=== PATIENT | male | born 1980 | race African-American/Black ===

== ENCOUNTER 2018-02-16 06:16 | Inpatient (IN) | payer SELFPAY ==
[2018-02-16] MEDS ORDERED: ALBUTEROL 2.5 MG/3 ML NEB SOL ONE ×2 (06:28→06:41)
[2018-02-16] MEDS ORDERED: LORazepam 2 MG/ML VIAL ONE (06:28)
[2018-02-16 06:47] LABS: Absolute Lymphocytes (CBC) 3.1 K/uL (0.7-4.9); Absolute Neutrophil 17.3 K/uL (1.8-8.0); Basophils % 0.8 % (0-1.3); Eosinophils % 1.1 % (0-4.4); Hematocrit 44.4 % (39.6-49.0); Lymphocytes % 13.7 % (15.3-44.8); MCH 31.4 pg (27.0-35.0); MCV 91.3 fL (80-100); MPV 6.9 fL (7.6-11.3); Monocytes % 8.6 % (3.3-12.3); RBC Red Blood Cell Count 4.86 M/uL (4.33-5.43)
[2018-02-16 07:04] LABS: Albumin 3.9 g/dL (3.2-5.5); Bilirubin Direct 0.1 mg/dL (0-0.2); Bilirubin Total 0.5 mg/dL (0.3-1.2); Magnesium 1.8 mg/dL (1.8-2.5); Protein, Total 7.3 g/dL (6.0-8.3)
[2018-02-16 07:07] LABS: CKMB Creatine Kinase MB 1.5 ng/ml (0.3-4.0)
[2018-02-16 07:14] LABS: Potassium 2.7 mEq/L (3.6-5.0)
[2018-02-16] MEDS ORDERED: NA CHLORIDE 0.9% 1,000 ML ONE (07:32)
[2018-02-16] MEDS ORDERED: KCL 20 MEQ/100 mL IVPB 40 MEQ/200 ML BAG IV ONE (07:33)
--- NOTE | 2018-02-16 07:36 | EKG ---
Test Date: 2018-02-16 Test Time: 06:14:12 Corporate Meeting Planner: JESÚS MEASUREMENT RESULTS: Intervals: Rate: 92 IL: 146 QRSD: 110 QT: 390 QTc: 482 [place]: P: 67 IL: 146 QRS: 29 T: 61 INTERPRETIVE STATEMENTS: Normal sinus rhythm Nonspecific T wave abnormality Prolonged QT Abnormal ECG No previous ECG available for comparison Electronically Signed On 02-16-18 07:35:14 CDT by Mao Nuñez
[2018-02-16 07:56] LABS: Blood Morphology Comment NOT SEEN (NOT SEEN); Platelet Estimate ADEQ
[2018-02-16 08:12] LABS: Blood Gas Oxyhemoglobin 88.9 % (94-97); Blood O2 Saturation 92.6 % (92-98.5)
[2018-02-16] MEDS ORDERED: KETOROLAC 30 MG/ML INJ ONE (08:13)
[2018-02-16 08:23] LABS: Arterial Blood Carboxyhemoglob 2.8 % (0-1.5)
[2018-02-16] MEDS ORDERED: FENTANYL CITR 100 MCG/2 ML ONE (08:36)
--- NOTE | 2018-02-16 08:47 | RAD REPORT ---
EXAM DESCRIPTION: RAD - Chest Single View - 02/16/2018 6:45 am CLINICAL HISTORY: Chest pain COMPARISON: None. TECHNIQUE: AP portable chest image was obtained 0642 hours . FINDINGS: Low lung volumes noted. This accentuates heart, vasculature and lung markings. No focal co nsolidations seen. A mild failure or volume overload could be masked in this setting. Heart and vascu lature are normal. No measurable pleural effusion and no pneumothorax. No gross bony abnormality seen . No acute aortic findings suspected. IMPRESSION: No focal lung parenchymal process. Shallow inspiration could mask early failure, volume overload or interstitial infiltrate.
--- NOTE | 2018-02-16 09:14 | EDPHYS ---
Physician Documentation [facility] Name: Kimberlee Aguilar Age: 37 yrs Sex: Male : 1980 Arrival Date: 02/16/2018 Time: 06:18 Bed 13 Private MD: ED Physician Matt Nix HPI: 02/16 06:43 This 37 yrs old Black Male presents to ER via EMS with complaints of Chest Pain. snw 06:43 The patient or guardian reports chest pain that is located primarily in the substernal snw area. The pain does not radiate. Associated signs and symptoms: Pertinent positives: cough. The chest pain is described as sharp. Duration: The patient or guardian reports multiple episodes, that wax and wane. Severity of pain: At its worst the pain was moderate. The patient has experienced similar episodes in the past. The patient has not recently seen a physician, and does not have an established primary care provider. Noncompliant with lasix and amlodipine. Historical: - Allergies: 06:22 No Known Allergies; bs1 - Home Meds: 06:22 amlodipine 5 mg tab 1 tab once daily [Active]; Lasix Oral [Active]; bs1 - PMHx: 06:22 high blood pressure; bs1 - PSHx: 06:22 None; bs1 - Immunization history:: Adult Immunizations up to date. - Social history:: Smoking status: Patient/guardian denies using tobacco. - Ebola Screening: : Patient negative for fever greater than or equal to 101.5 degrees Fahrenheit, and additional compatible Ebola Virus Disease symptoms Patient denies exposure to infectious person. ROS: 06:42 Eyes: Negative for injury, pain, redness, and discharge, ENT: Negative for injury, snw pain, and discharge, Neck: Negative for injury, pain, and swelling. 06:42 Abdomen/GI: Negative for abdominal pain, nausea, vomiting, diarrhea, and constipation, Back: Negative for injury and pain, : Negative for injury, bleeding, discharge, and swelling, MS/Extremity: Negative for injury and deformity, Skin: Negative for injury, rash, and discoloration, Neuro: Negative for headache, weakness, numbness, tingling, and seizure, Psych: Negative for depression, anxiety, suicide ideation, homicidal ideation, and hallucinations. 06:42 Constitutional: Positive for body aches, malaise. 06:42 Cardiovascular: Positive for chest pain, edema. 06:42 Respiratory: Positive for cough, shortness of breath. Exam: 06:40 Head/Face: Normocephalic, atraumatic. Eyes: Pupils equal round and reactive to light, snw extra-ocular motions intact. Lids and lashes normal. Conjunctiva and sclera are non-icteric and not injected. Cornea within normal limits. Periorbital areas with no swelling, redness, or edema. ENT: Nares patent. No nasal discharge, no septal abnormalities noted. Tympanic membranes are normal and external auditory canals are clear. Oropharynx with no redness, swelling, or masses, exudates, or evidence of obstruction, uvula midline. Mucous membranes moist. Neck: Trachea midline, no thyromegaly or masses palpated, and no cervical lymphadenopathy. Supple, full range of motion without nuchal rigidity, or vertebral point tenderness. No Meningismus. Chest/axilla: Normal chest wall appearance and motion. Nontender with no deformity. No lesions are appreciated. Cardiovascular: Regular rate and rhythm with a normal S1 and S2. No gallops, murmurs, or rubs. Normal PMI, no JVD. No pulse deficits. Abdomen/GI: Soft, non-tender, with normal bowel sounds. No distension or tympany. No guarding or rebound. No evidence of tenderness throughout. Back: No spinal tenderness. No costovertebral tenderness. Full range of motion. 06:40 Skin: Warm, dry with normal turgor. Normal color with no rashes, no lesions, and no evidence of cellulitis. MS/ Extremity: Pulses equal, no cyanosis. Neurovascular intact. Full, normal range of motion. Neuro: Awake and alert, GCS 15, oriented to person, place, time, and situation. Cranial nerves II-XII grossly intact. Motor strength 5/5 in all extremities. Sensory grossly intact. Cerebellar exam normal. Normal gait. 06:40 Constitutional: The patient appears anxious, obese, restless, uncomfortable. 06:40 Respiratory: the patient does not display signs of respiratory distress, Respirations: shallow respirations, that is moderate, Breath sounds: wheezing: that is moderate, is heard diffusely. 06:40 Psych: Behavior/mood is uncooperative, inappropriate for age, Affect is flat, Oriented to person, place, time, Patient has no thoughts/intents to harm self or others. Vital Signs: 06:22 BP 128 / 80 RA Sitting (auto/lg); Pulse 89 RA; Resp 18; Temp 98.4(O); Pulse Ox 100% on bs1 R/A; Weight 111.13 kg; Height 5 ft. 11 in. (180.34 cm); Pain 10/10; 07:00 BP 150 / 100; Pulse 98; Resp 32; Temp 98.9(O); Pulse Ox 98% on R/A; Pain 3/10; ch 08:20 BP 175 / 106; Pulse 108; Resp 30; Temp 99(O); Pulse Ox 98% on R/A; Pain 9/10; ch 08:48 BP 155 / 102; Pulse 109; Resp 22; Pulse Ox 94% on R/A; Pain 5/10; ch 09:39 BP 184 / 97; Pulse 102; Resp 20; Temp 98.5; Pulse Ox 99% on R/A; Pain 4/10; ch 10:45 BP 197 / 97; Pulse 112; Resp 40; Pulse Ox 98% on R/A; ch 11:06 BP 172 / 103; Pulse 103; Resp 41; Pulse Ox 87% on R/A; ch 11:32 BP 170 / 92; Pulse 95; Resp 32; Pulse Ox 96% on BiPAP; ch 11:59 BP 171 / 106; Pulse 98; Resp 28; Temp 98.9; Pulse Ox 99% on BiPAP; ch 06:22 Body Mass Index 34.17 (111.13 kg, 180.34 cm) bs1 08:20 pt c/o sharp increase in pain. medicated per orders. pt is aaox4 now ch 11:06 rt AT BEDSIDE WITH BIPAP FOR PT ch 11:59 pt o2 room air is 96% ch MDM: 06:19 Patient medically screened. snw 09:14 Data reviewed: vital signs, nurses notes. Counseling: I had a detailed discussion with snw the patient and/or guardian regarding: the historical points, exam findings, and any diagnostic results supporting the discharge/admit diagnosis, the presence of at least one elevated blood pressure reading (>120/80) during this emergency department visit, lab results, radiology results, the need for further work-up and treatment in the hospital. Physician consultation: Huber Almeida DO was called at 09:00, was contacted at 09:00, regarding admission, to the telemetry unit. 09:15 ECG:. Data interpreted: Pulse oximetry: on room air is 88 %. Interpretation: hypoxia. snw Plan: O2 by NC applied. 02/16 06:22 Order name: Basic Metabolic Panel; Complete Time: 07:18 snw 02/16 06:22 Order name: BNP; Complete Time: 07:18 snw 02/16 06:22 Order name: CBC with Diff snw 02/16 06:22 Order name: Ckmb; Complete Time: 07:18 snw 02/16 06:22 Order name: CPK; Complete Time: 07:18 snw 02/16 06:22 Order name: LFT's; Complete Time: 07:18 snw 02/16 06:22 Order name: Magnesium; Complete Time: 07:18 snw 02/16 06:22 Order name: PT-INR; Complete Time: 07:11 snw 02/16 06:22 Order name: Ptt, Activated; Complete Time: 07:11 snw 02/16 06:22 Order name: Troponin (emerg Dept Use Only) snw 02/16 06:49 Order name: Blood Culture Adult (2) snw 02/16 06:54 Order name: Urine Dipstick--Ancillary (enter results); Complete Time: 10:29 jw5 02/16 07:19 Order name: ABG; Complete Time: 08:36 snw 02/16 07:56 Order name: Manual Differential EDMS 02/16 09:51 Order name: Procalcitonin snw 02/16 10:40 Order name: ABG ch 02/16 10:54 Order name: Basic Metabolic Panel EDMS 02/16 10:54 Order name: Basic Metabolic Panel EDMS 02/16 10:54 Order name: Basic Metabolic Panel EDMS 02/16 10:54 Order name: Basic Metabolic Panel EDMS 02/16 10:54 Order name: CBC with Automated Diff EDMS / 10:54 Order name: CBC with Automated Diff EDMS / 10:54 Order name: Magnesium EDMS 02/16 10:54 Order name: Magnesium EDMS 02/16 10:54 Order name: Magnesium EDMS 02/16 10:54 Order name: Magnesium EDMS 02/16 10:54 Order name: T4 Free EDNY 02/16 10:54 Order name: T4 Free [facility] 02/16 10:54 Order name: Thyroid Stimulating Hormone [facility] 02/16 10:54 Order name: Thyroid Stimulating Hormone [facility] 02/16 06:22 Order name: XRAY Chest (1 view); Complete Time: 08:53 snw 02/16 06:22 Order name: EKG; Complete Time: 06:22 snw 02/16 06:22 Order name: Cardiac monitoring; Complete Time: 06:23 snw 02/16 06:22 Order name: EKG - Nurse/Tech; Complete Time: 06:23 snw 02/16 06:22 Order name: IV Saline Lock; Complete Time: 06:40 snw 02/16 06:22 Order name: Labs collected and sent; Complete Time: 06:40 snw 02/16 06:22 Order name: O2 Per Protocol; Complete Time: 06:40 snw 02/16 06:22 Order name: O2 Sat Monitoring; Complete Time: 06:40 snw 02/16 06:22 Order name: Urine Dipstick-Ancillary (obtain specimen); Complete Time: 06:52 snw 02/16 09:47 Order name: CT Chest For PE Angio; Complete Time: 10:29 snw 02/16 10:44 Order name: BIPAP [facility] 02/16 10:54 Order name: CONS Physician Consult EDNY 02/16 10:54 Order name: Heart Healthy [facility] 02/16 10:54 Order name: Echo with Doppler [facility] 02/16 10:54 Order name: Influenza Screen (A ; Complete Time: 12:12 [facility] 02/16 10:54 Order name: Group A Streptococcus Rapid Sc; Complete Time: 12:12 [facility] 02/16 10:54 Order name: Sputum Culture [facility] 02/16 10:55 Order name: Respiratory Therapy Consult [facility] 02/16 10:55 Order name: ABG Arterial Blood Gas EDNY Administered Medications: 06:30 Drug: Albuterol 2.5 mg Route: Inhalation; bs1 06:37 Drug: Ativan 1 mg Route: IVP; Site: left antecubital; bs1 08:06 Follow up: Response: No adverse reaction; Marked relief of symptoms ch 06:50 Drug: Albuterol 2.5 mg Route: Inhalation; bs1 08:05 Drug: Potassium Chloride 20 mEq Route: IV; Rate: calculated rate; Site: right ch antecubital; 10:00 Follow up: IV Status: Completed infusion; IV Intake: 100ml ch 08:06 Drug: NS 0.9% 500 ml Route: IV; Rate: calculated rate; Site: right antecubital; ch 08:45 Drug: fentaNYL (PF) 25 mcg Route: IVP; Site: left antecubital; ch 09:30 Drug: Zosyn 3.375 grams Route: IVPB; Infused Over: 60 mins; Site: left antecubital; ch 10:11 Follow up: IV Status: Completed infusion; IV Intake: 100ml ch 09:41 Drug: fentaNYL (PF) 25 mcg Route: IVP; Site: left antecubital; ch 10:12 Follow up: Response: No adverse reaction; Marked relief of symptoms ch 09:41 Drug: amLODIPine 10 mg Route: PO; ch 10:12 Follow up: Response: No adverse reaction; Blood pressure is lowered ch 10:12 Drug: Potassium Chloride 20 mEq Route: IV; Rate: calculated rate; Site: right ch antecubital; 10:50 Drug: Nitro-Bid Ointment 2 % 1 inches Route: Transdermal; Site: anterior chest wall; Disposition: 15:13 Co-signature as Attending Physician, Matt Nix MD I agree with the assessment and pura plan of care. Disposition: 02/16/18 09:13 Hospitalization ordered by uHber Almeida for Inpatient Admission. Preliminary diagnosis are Pneumonia, unspecified organism, Hypokalemia, Unspecified systolic (congestive) heart failure. - Bed requested for Telemetry/MedSurg (Inpatient). - Status is Inpatient Admission. iw - Condition is Fair. - Problem is new. - Symptoms are unchanged. UTI on Admission? No Signatures: Dispatcher [employer] EDYasmeen Weston Christina, RN RN ch Anderson, Corey, MD MD cha Therrien, Shelly, ARTIST REPRESENTATIVE-C ARTIST REPRESENTATIVE-Lilian Hayward RN RN iw Salazar, Brittany, RN RN bs1 Corrections: (The following items were deleted from the chart) 11:16 09:13 Hospitalization Ordered by Huber Almeida DO for Inpatient Admission. Preliminary bd diagnosis is Pneumonia, unspecified organism; Hypokalemia; Unspecified systolic (congestive) heart failure. Bed requested for Telemetry/MedSurg (Inpatient). Status is Inpatient Admission. Condition is Fair. Problem is new. Symptoms are unchanged. UTI on Admission? No. snw 12:47 11:16 02/16/2018 09:13 Hospitalization Ordered by Huber Almeida DO for Inpatient iw Admission. Preliminary diagnosis is Pneumonia, unspecified organism; Hypokalemia; Unspecified systolic (congestive) heart failure. Bed requested for Telemetry/MedSurg (Inpatient). Status is Inpatient Admission. Condition is Fair. Problem is new. Symptoms are unchanged. UTI on Admission? No. bd
--- NOTE | 2018-02-16 09:14 | ER ---
Nurse's Notes [facility] Name: Kimberlee Aguilar Age: 37 yrs Sex: Male : 1980 Arrival Date: 02/16/2018 Time: 06:18 Bed 13 Private MD: Diagnosis: Pneumonia, unspecified organism;Hypokalemia;Unspecified systolic (congestive) heart failure Presentation: 02/16 06:18 Presenting complaint: EMS states: "Patient c/o chest pain and pain "all over" that bs1 began about an hour ago, on arrival patients blood pressure was 162/62, went down to 126/62 after giving 80mg lasix and 1 nitro.". Transition of care: patient was not received from another setting of care. Onset of symptoms was February 16, 2018. Risk Assessment: Do you want to hurt yourself or someone else? Patient reports no desire to harm self or others. Initial Sepsis Screen: Does the patient meet any 2 criteria? HR > 90 bpm. Does the patient have a suspected source of infection? No. Patient's initial sepsis screen is negative. Care prior to arrival: Medication(s) given: Nitroglycerin, x 1, lasix 80mg EKG- SR. 06:18 Method Of Arrival: EMS: [facility] bs1 06:18 Acuity: CELINE 3 bs1 Historical: - Allergies: 06:22 No Known Allergies; bs1 - Home Meds: 06:22 amlodipine 5 mg tab 1 tab once daily [Active]; Lasix Oral [Active]; bs1 - PMHx: 06:22 high blood pressure; bs1 - PSHx: 06:22 None; bs1 - Immunization history:: Adult Immunizations up to date. - Social history:: Smoking status: Patient/guardian denies using tobacco. - Ebola Screening: : Patient negative for fever greater than or equal to 101.5 degrees Fahrenheit, and additional compatible Ebola Virus Disease symptoms Patient denies exposure to infectious person. Screenin:24 Abuse screen: Denies threats or abuse. Denies injuries from another. Nutritional bs1 screening: No deficits noted. Tuberculosis screening: No symptoms or risk factors identified. Fall Risk None identified. Assessment: 06:10 General: Appears uncomfortable, Behavior is anxious. Pain: Complains of pain in bs1 substernal chest pain/all over body Pain does not radiate. Pain: Pain began suddenly, 1 hour ago. Neuro: Level of Consciousness is awake, alert, obeys commands, Oriented to person, place, time, situation, Appropriate for age Dredge Hand are equal bilaterally. Neuro: Reports weakness. Cardiovascular: Reports chest pain, nausea. Cardiovascular: Heart tones S1 S2 present Capillary refill < 3 seconds Patient's skin is warm and dry. Cardiovascular: Edema is 1+ to pitting in right foot. Respiratory: Reports cough that is productive, Airway is patent Breath sounds with rales bilaterally. GI: Abdomen is round Bowel sounds present X 4 quads. Reports nausea. : No signs and/or symptoms were reported regarding the genitourinary system. EENT: No signs and/or symptoms were reported regarding the EENT system. Derm: Skin is intact, Skin is pink, warm \\T\\ dry. Musculoskeletal: Circulation, motion, and sensation intact. Capillary refill < 3 seconds, Range of motion: intact in all extremities, patient reports pain to bilateral legs. 06:55 Reassessment: No changes from previously documented assessment. Patient and/or family bs1 updated on plan of care and expected duration. Pain level reassessed. Patient is alert, oriented x 3, equal unlabored respirations, skin warm/dry/pink. Patient receiving breathing tx. 07:02 Reassessment: Report given to LUCAS Sinha. bs1 07:20 Reassessment: Patient appears in no apparent distress at this time. Patient and/or ch family updated on plan of care and expected duration. Pain level reassessed. pt is very sleepy, arouses to physical stimuli. pt has been sedated. pt is oriented x4. 07:20 General: Appears in no apparent distress. comfortable, Behavior is listless, quiet. ch Pain: Denies pain. Neuro: Level of Consciousness is obeys commands, lethargic, Oriented to person, place, time, situation, Dredge Hand are equal bilaterally. Cardiovascular: Reports chest pain, nausea, shortness of breath, Heart tones S1 S2 muffled Capillary refill < 3 seconds in bilateral fingers toes Patient's skin is warm and dry. Edema is 2+ to left midcalf, left ankle, left foot, right midcalf, right ankle and right foot Rhythm is sinus tachycardia Chest pain is described as mild. Respiratory: Reports shortness of breath cough that is productive, persistent pain with cough Airway is patent Trachea midline Respiratory effort is even, labored, gasping, Respiratory pattern is regular, tachypnea Breath sounds with rales Breath sounds with rhonchi bilaterally. GI: Reports nausea. : No signs and/or symptoms were reported regarding the genitourinary system. 08:00 Reassessment: Patient appears in no apparent distress at this time. Patient and/or ch family updated on plan of care and expected duration. Pain level reassessed. Patient states feeling better. 08:30 Reassessment: Patient appears in no apparent distress at this time. Patient and/or ch family updated on plan of care and expected duration. Pain level reassessed. Patient states symptoms have not improved. pt c/o increase in pain. pt is awake and alert, moaning and restless in the bed. pt educated on potassium level. 09:39 Reassessment: Patient appears in no apparent distress at this time. Patient and/or ch family updated on plan of care and expected duration. Pain level reassessed. Patient states feeling better. Patient states symptoms have improved. pt sleeping in room. pt rr 35. mary notified of pt vitals. . 10:43 Reassessment: PT IS HAVING PERIODS OF APNEA, LESS THAN 10 SECONDS LONG, FOLLOWED BY ch TACHYPNEA RR APPROX 40. MARY NOTIFIED, REPEAT ABG ORDERS WITH POSSIBLE BI PAP. PT IS LETHARGIC, AROUSES TO PHYSICAL STIMULI. PT BP INCREASED TO 196/97. WILL MEDICATE PER ORDERS. PT O2 REMAINS OVER 95% ROOM AIR. PT LUNG SOUNDS UNCHANGED, RHONCHI AND NORM CRACKLES. 11:06 Reassessment: Patient appears in no apparent distress at this time. PT O2 DIPS TO 87%. ch PT AWOKEN WITH STERNAL RUB, WAKES UP AND SWALLOWS ON HIS OWN. PT HAS +GAG REFLEX. RT AT BEDSIDE WITH BIPAP FOR PT, REPEAT ABG. 11:32 Reassessment: Patient appears in no apparent distress at this time. Patient and/or ch family updated on plan of care and expected duration. Pain level reassessed. Patient is alert, oriented x 3, equal unlabored respirations, skin warm/dry/pink. Patient states feeling better. Patient states symptoms have improved. pt tolerates bi pap well with intermittent breaks. pt is awake and alert. pt repositioned for comfort. pt vitals improved. . 11:59 Reassessment: Patient appears in no apparent distress at this time. Patient and/or ch family updated on plan of care and expected duration. Pain level reassessed. Patient states feeling better. Patient states symptoms have improved. pt vital signs improved with usage of bi pap. pt keeps taking bi pap off to make phone calls, spit, or because he wants juice and water. pt educated on why he needs to wear the bi pap, and told to leave it on. no s/s of distress, lung sounds improved. . 12:03 Reassessment: report called to Mark now. Vital Signs: 06:22 BP 128 / 80 RA Sitting (auto/lg); Pulse 89 RA; Resp 18; Temp 98.4(O); Pulse Ox 100% on bs1 R/A; Weight 111.13 kg; Height 5 ft. 11 in. (180.34 cm); Pain 10/10; 07:00 BP 150 / 100; Pulse 98; Resp 32; Temp 98.9(O); Pulse Ox 98% on R/A; Pain 3/10; ch 08:20 BP 175 / 106; Pulse 108; Resp 30; Temp 99(O); Pulse Ox 98% on R/A; Pain 9/10; ch 08:48 BP 155 / 102; Pulse 109; Resp 22; Pulse Ox 94% on R/A; Pain 5/10; ch 09:39 BP 184 / 97; Pulse 102; Resp 20; Temp 98.5; Pulse Ox 99% on R/A; Pain 4/10; ch 10:45 BP 197 / 97; Pulse 112; Resp 40; Pulse Ox 98% on R/A; ch 11:06 BP 172 / 103; Pulse 103; Resp 41; Pulse Ox 87% on R/A; ch 11:32 BP 170 / 92; Pulse 95; Resp 32; Pulse Ox 96% on BiPAP; ch 11:59 BP 171 / 106; Pulse 98; Resp 28; Temp 98.9; Pulse Ox 99% on BiPAP; ch 06:22 Body Mass Index 34.17 (111.13 kg, 180.34 cm) bs1 08:20 pt c/o sharp increase in pain. medicated per orders. pt is aaox4 now ch 11:06 rt AT BEDSIDE WITH BIPAP FOR PT ch 11:59 pt o2 room air is 96% Vitals: 08:48 Cardiac Rhythm Assessment Sinus tach. ED Course: 06:18 Patient arrived in ED. bs1 06:18 Mary Burger FNP-C is [facility]. snw 06:19 Matt Nix MD is Attending Physician. snw 06:21 Triage completed. bs1 06:24 Maintain EMS IV. Dressing intact. Good blood return noted. Site clean \\T\\ dry. Gauge \\T\\ bs 1 site: 20G left AC. Patient maintains SpO2 saturation greater than 95% on room air. 06:25 Ashley Cole, RN is Primary Nurse. bs1 06:45 X-ray completed. Portable x-ray completed in exam room. Patient tolerated procedure kw well. 06:45 Patient has correct armband on for positive identification. Placed in gown. Bed in low bs1 position. Call light in reach. Side rails up X 1. media monitor on. Pulse ox on. NIBP on. Warm blanket given. 06:45 Arm band placed on right wrist. EKG completed in triage. Results shown to MD. bs1 06:46 XRAY Chest (1 view) In Process Unspecified. EDMS 06:46 No provider procedures requiring assistance completed. bs1 07:00 Primary Nurse role handed off by Ashley Cole RN ch 07:00 Ernestine Sultana, LUCAS is Primary Nurse. ch 07:19 Notified Nurse Practitioner and/or Physician Senior Project Coordinator of a critical lab result(s), iw Potassium=2.7. 07:50 No apparent distress. Resting quietly. ch 07:50 Inserted saline lock: 18 gauge in right antecubital area, using aseptic technique. ch 09:13 Huber Almeida DO is Hospitalizing Provider. snw 10:09 CT completed. Patient tolerated procedure well. Patient moved to CT. Patient moved back cw1 from CT. 10:10 CT Chest For PE Angio In Process Unspecified. EDMS 12:13 Patient admitted, IV remains in place. Administered Medications: 06:30 Drug: Albuterol 2.5 mg Route: Inhalation; bs1 06:37 Drug: Ativan 1 mg Route: IVP; Site: left antecubital; bs1 08:06 Follow up: Response: No adverse reaction; Marked relief of symptoms ch 06:50 Drug: Albuterol 2.5 mg Route: Inhalation; bs1 08:05 Drug: Potassium Chloride 20 mEq Route: IV; Rate: calculated rate; Site: right ch antecubital; 10:00 Follow up: IV Status: Completed infusion; IV Intake: 100ml ch 08:06 Drug: NS 0.9% 500 ml Route: IV; Rate: calculated rate; Site: right antecubital; ch 08:45 Drug: fentaNYL (PF) 25 mcg Route: IVP; Site: left antecubital; ch 09:30 Drug: Zosyn 3.375 grams Route: IVPB; Infused Over: 60 mins; Site: left antecubital; ch 10:11 Follow up: IV Status: Completed infusion; IV Intake: 100ml ch 09:41 Drug: fentaNYL (PF) 25 mcg Route: IVP; Site: left antecubital; ch 10:12 Follow up: Response: No adverse reaction; Marked relief of symptoms ch 09:41 Drug: amLODIPine 10 mg Route: PO; ch 10:12 Follow up: Response: No adverse reaction; Blood pressure is lowered ch 10:12 Drug: Potassium Chloride 20 mEq Route: IV; Rate: calculated rate; Site: right ch antecubital; 10:50 Drug: Nitro-Bid Ointment 2 % 1 inches Route: Transdermal; Site: anterior chest wall; ch Intake: 10:00 IV: 100ml; Total: 100ml. ch 10:11 IV: 100ml; Total: 200ml. ch Outcome: 09:13 Decision to Hospitalize by Provider. snw 12:11 Admitted to Med/surg accompanied by tech, via stretcher, with oxygen, with chart, Report called to Mark 12:11 Condition: stable 12:11 Instructed on the need for admit. 12:47 Patient left the ED. iw Signatures: Dispatcher [employer] EDEnrestine Monge, RN RN Mary Burger, VIDEO TAPE TRANSFERRER-C VIDEO TAPE TRANSFERRER-Lilian Hayward RN RN Tatiana Kitchen Kimberlee kw Salazar, Brittany, RN RN bs1 Corrections: (The following items were deleted from the chart) 09:01 08:59 Zosyn 3.375 grams IVPB in left antecubital over 60 mins [facility]
[2018-02-16] MEDS ORDERED: PIPER/TAZO/NS 3.375gm 3.375 GM/100 ML BAG IV ONE (09:15)
[2018-02-16] MEDS ORDERED: AMLODIPINE 5 MG TAB ONE (09:51)
[2018-02-16 10:01] LABS: Urine Blood NEGATIVE (NEG); Urine Glucose NEGATIVE (NEG); Urine Protein NEGATIVE (NEG); Urine Specific Gravity 1.015 (1.005-1.030)
--- NOTE | 2018-02-16 10:25 | RAD REPORT ---
EXAM DESCRIPTION: CT - Chest For Pe Angio - 02/16/2018 10:09 am CLINICAL HISTORY: Chest pain. Hypertension. COMPARISON: None. TECHNIQUE: CT angiogram of the pulmonary arteries was performed with MIP. All CT scans are performed using dose optimization technique as appropriate and may include automated exposure control or mA/KV adjustment according to patient size. FINDINGS: No evidence of pulmonary thromboembolism. The very distal inferior branches are limited in assessment due to respiratory motion artifact. No acute aortic finding demonstrated. Linear atelectasis is present in both lung bases, greater on the right. Early infiltrate posterior ri ght lung base is difficult to exclude. Small area of ground-glass opacity is seen in the lingula. No significant pericardial or pleural fluid. Mildly prominent axillary and mediastinal lymph nodes ar e seen, most likely reactive. No concerning bony finding. IMPRESSION: No evidence of pulmonary thromboembolism. Linear subsegmental atelectasis in both posterior lung bases, greater on the right. Early infiltrate posterior right lung base is not excluded.
[2018-02-16] MEDS ORDERED: NITROGLYCERIN 1 GM PKT TD ONE (10:49)
[2018-02-16] MEDS ORDERED: NA CHLORIDE 0.9% 1,000 ML IV SCH (11:00)
--- NOTE | 2018-02-16 11:40 | P.HP ---
Certification for Inpatient Patient admitted to: Inpatient With expected LOS: >2 Midnights Patient will require the following post-hospital care: None Practitioner: I am a practitioner with admitting privileges, knowledge of patient current condition, hospital course, and medical plan of care. Services: Services provided to patient in accordance with Admission requirements found in Title 42 Section 412.3 of the Code of Federal Regulations Patient History Date of Service: 02/16/18 Primary Care Provider: None Reason for admission: Pain all over, shortness of breath History of Present Illness: 37-year-old male presented emergency room with pain all over and some shortness of breath. Patient reported pain all over his body. Patient is a poor historian. ER physician reports that the patient was evaluated at home by EMS. Patient was hypoxic. Patient was given Lasix by EMS. ER physician reports that the patient has been taking Lasix and Norvasc at home. Patient was able to put out about 1300 cc of fluid. Patient became agitated and given Ativan. Patient had increased sedation with medication. Patient still had some shortness of breath. Lab showed a pH is 7.4, PC of 249, PO2 of 63. White count elevated at 22.8. Sodium 137, potassium 2.7, bicarb 36. BUN of 13, creatinine 1.19 with a GFR of 82. Glucose 44. Magnesium 1.8. CT scan showed atelectasis bilateral with possible right early infiltrate. Due to nature the findings the patient was admitted for further evaluation. When I evaluated the patient, he still had some increased sedation. Patient snoring. Patient was able to respond appropriately. Patient reports a history of hypertension. Patient has been taking ibuprofen for pain on a regular basis. Patient smokes. Patient reports that he has been having a cough with a use of lisinopril. Allergies No Known Allergies Allergy (Unverified 02/16/18 09:07) Home medications list reviewed: Yes - Past Medical/Surgical History Diabetic: No -: Hypertension -: GERD -: Chronic pain Past Surgical History: Patient denies surgical history Psychosocial/ Personal History: The patient is single. He has 4 children. 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 - Family History Family History: Reviewed- Non-Contributory - Social History Smoking Status: Heavy Tobacco smoker (>10 cigarettes/day) Counseled patient to stop smoking for: less than 10 minutes Smoking therapy provided: Yes Patient receptive to therapy: Yes Alcohol use: No CD- Drugs: No Caffeine use: Yes Place of Residence: Home Review of Systems General: Weakness, As per HPI Eyes: Unremarkable ENT: Nose Congestion, As per HPI Respiratory: Cough, Shortness of Breath, As per HPI Cardiovascular: Chest Pain, As per HPI Gastrointestinal: Unremarkable Genitourinary: Unremarkable Musculoskeletal: As per HPI Integumentary: Unremarkable Neurological: As per HPI Lymphatics: Unremarkable Physical Examination - Physical Exam General: Alert, Cooperative, Other (Increase sedation noted.) HEENT: Atraumatic, Normocephalic, Other (Dry mucous membranes bilateral) Neck: Supple Respiratory: Crackles/rales (To the right base noted) Cardiovascular: Normal pulses, Regular rate/rhythm Gastrointestinal: Normal bowel sounds, Soft and benign, Non-distended, No tenderness, No masses, No rebound, No guarding Musculoskeletal: No erythema, No tenderness, No warmth Integumentary: No tenderness/swelling, No erythema, No warmth, No cyanosis Neurological: Normal speech, Normal strength at 5/5 x4 extr, Normal tone, Normal affect Lymphatics: No axilla or inguinal lymphadenopathy - Studies Laboratory Data (last 24 hrs) 02/16/18 06:36: PT 11.8, INR 1.00, APTT 29.6 02/16/18 06:36: WBC 22.8 H*, Hgb 15.2, Hct 44.4, Plt Count 350 02/16/18 06:36: B-Natriuretic Peptide 30 02/16/18 06:36: Sodium 137, Potassium 2.7 L*, BUN 13, Creatinine 1.19, Glucose 144 H, Magnesium 1.8, Total Bilirubin 0.5, AST 25, ALT 30, Alkaline Phosphatase 56 Assessment and Plan - Problems (Diagnosis) (1) Dyspnea Current Visit: Yes Status: Acute Plan: Likely from atelectasis and underlying possible right lower lobe pneumonia. Patient be started on antibiotic therapy. Possible aspiration. Aspiration precautions in place. Will obtain sputum and blood cultures. Will recheck chest x-ray in the morning. Will maintain sats above 90%. Patient may have underlying sleep apnea. Patient may require BiPAP. Will monitor closely. Will recheck ABGs this afternoon. Pulmonology consulted to further evaluate. Will check echocardiogram to evaluate for possible underlying CHF. Qualifiers: Dyspnea type: shortness of breath Qualified Code(s): R06.02 - Shortness of breath; R06.00 - Dyspnea, unspecified; R06.01 - Orthopnea (2) Pneumonia Current Visit: Yes Status: Acute Plan: Possible pneumonia noted. Continue as above. Qualifiers: Pneumonia type: due to unspecified organism Laterality: right Lung location: lower lobe of lung Qualified Code(s): J18.1 - Lobar pneumonia, unspecified organism (3) Hypoxia Current Visit: Yes Status: Acute Plan: Will maintain sats above 90%. Patient may have underlying component of sleep apnea. Patient may require BiPAP. Pulmonology consulted. (4) Tobacco abuse Current Visit: Yes Status: Chronic Plan: Will address lifestyle modification education. Tobacco cessation will be addressed in detail. (5) Hypertension Current Visit: Yes Status: Chronic Plan: Will provide medication. Will discontinue lisinopril due to recent cough allergy. Qualifiers: Hypertension type: essential hypertension Qualified Code(s): I10 - Essential (primary) hypertension (6) GERD (gastroesophageal reflux disease) Current Visit: Yes Status: Chronic Plan: Will provide medication Qualifiers: Esophagitis presence: esophagitis presence not specified Qualified Code(s) : K21.9 - Gastro-esophageal reflux disease without esophagitis (7) Obstructive sleep apnea Current Visit: Yes Status: Suspected Plan: Patient will need sleep study done as an outpatient. Await further recommendation from pulmonology. (8) Hypokalemia Current Visit: Yes Status: Acute Plan: Will monitor and replace appropriately. Patient protocol in place. Patient did receive Lasix in the field. (9) Atelectasis Current Visit: Yes Status: Acute Plan: Bilateral atelectasis noted. Will continue above. Will provide incentive spirometer. Discharge Plan: Home Plan to discharge in: Greater than 2 days - Advance Directives Does patient have a Living Will: No Does patient have a Durable POA for Healthcare: No Time Spent Managing Pts Care (In Minutes): 55
[2018-02-16] MEDS: ACETAMINOPHEN 500 MG TAB PO PRN ×2 (13:41→17:33)
--- NOTE | 2018-02-16 14:20 | RAD REPORT ---
EXAM DESCRIPTION: VAS - Extrem Venous W Compress Ajit - 02/16/2018 2:06 pm CLINICAL HISTORY: Bilateral leg edema and swelling. COMPARISON: None. TECHNIQUE: Real-time sonographic interrogation of the left and right lower extremity deep venous sys tems was performed. FINDINGS: Normal compressibility, flow augmentation, phasic flow and spontaneous flow is identified in both the left and right lower extremity deep venous systems. IMPRESSION: No sonographic evidence of left or right lower extremity deep venous thrombosis.
[2018-02-16] MEDS: ENOXAPARIN 40 MG/0.4 ML SQ SCH (16:37)
[2018-02-16] MEDS: PIPER/TAZO/NS 3.375gm 3.375 GM/100 ML BAG IVPB SCH (16:37)
--- NOTE | 2018-02-16 17:04 | ECHO ---
HEIGHT: 5 ft 11 in WEIGHT: 225 lb 0 oz DATE OF STUDY: 02/16/[address]: 2-DIMENSIONAL: YES M.MODE: YES DOPPLER: YES COLOR FLOW: YES TDS: YES PORTABLE: NO DEFINITY: NO BUBBLE STUDY: NO DIAGNOSIS: SHORTNESS OF BREATH CARDIAC HISTORY: CATHERIZATION: NO SURGERY: NO PROSTHETIC VALVE: NO PACEMAKER: NO MEASUREMENTS (cm) DIASTOLIC (NORMALS) SYSTOLIC (NORMALS) IVSd 1.3 (0.6-1.2) LA Diam 3.7 (1.9-4.0) LVEF 45-49% LVIDd 5.3 (3.5-5.7) LVIDs 3.6 (2.0-3.5) %FS 31% LVPWd 1.3 (0.6-1.2) Ao Diam 3.5 (2.0-3.7) 2 DIMENSIONAL ASSESSMENT: RIGHT ATRIUM: NORMAL LEFT ATRIUM: DILATED RIGHT VENTRICLE: NORMAL LEFT VENTRICLE: LEFT VENTRICULAR HYPERTROPHY TRICUSPID VALVE: NORMAL MITRAL VALVE: NORMAL PULMONIC VALVE: NORMAL AORTIC VALVE: NORMAL PERICARDIAL EFFUSION: NONE AORTIC ROOT: NORMAL LEFT VENTRICULAR WALL MOTION: GLOBAL HYPOKENSIS. LEFT VENTRICULAR HYPERTROPHY DOPPLER/COLOR FLOW: IMPAIRED LEFT VENTRICULAR RELAXATION. COMMENTS: MILDLY DEPRESSED LEFT VENTRICULAR EJECTION FRACTION. LEFT VENTRICULAR HYPERTROPHY. DILATED LEFT ATRIUM. IMPAIRED LEFT VENTRICULAR RELAXATION. TECHNOLOGIST: SONI KEITH RDCS
[2018-02-16] MEDS: TRAMADOL HCL 50 MG TAB PO PRN (19:30)
[2018-02-16] MEDS: BENZONATATE 100 MG CAP PO PRN (19:38)
[2018-02-16] MEDS: ARFORMOTEROL TARTRATE 15 MCG/2 ML VIAL.NEB NEB SCH (19:57)
[2018-02-16] MEDS: IPRATROPIUM BROM 0.5MG/2.5ML NEB PRN (20:02)
[2018-02-16] MEDS: ALBUTEROL 2.5 MG/3 ML NEB SOL NEB PRN (20:03)
[2018-02-17] MEDS: PIPER/TAZO/NS 3.375gm 3.375 GM/100 ML BAG IVPB SCH ×5 (00:43→17:21)
[2018-02-17] MEDS ORDERED: POTASSIUM 25 MEQ EFFERV TAB PO ONE (00:45)
[2018-02-17] MEDS: IPRATROPIUM BROM 0.5MG/2.5ML NEB PRN (01:08)
[2018-02-17] MEDS: ALBUTEROL 2.5 MG/3 ML NEB SOL NEB PRN (01:09)
[2018-02-17] MEDS ORDERED: HYDROCORTISONE SUC 100 MG INJ IV ONE (01:28)
[2018-02-17] MEDS: ONDANSETRON 4 MG/2 ML VIAL IV PRN ×2 (01:52→11:55)
[2018-02-17] MEDS: FENTANYL CITR 100 MCG/2 ML IV PRN ×4 (01:52→16:24)
[2018-02-17] MEDS: TRAMADOL HCL 50 MG TAB PO PRN ×2 (04:51→19:13)
[2018-02-17 06:39] LABS: Absolute Lymphocytes (CBC) 1.3 K/uL (0.7-4.9); Absolute Monocytes 1.3 K/uL (0.1-1.3); Absolute Neutrophil 25.8 K/uL (1.8-8.0); Basophils % 0.3 % (0-1.3); Hematocrit 40.6 % (39.6-49.0); Lymphocytes % 4.5 % (15.3-44.8); MCH 31.8 pg (27.0-35.0); MCV 91.9 fL (80-100); MPV 7.3 fL (7.6-11.3); Monocytes % 4.7 % (3.3-12.3); RBC Red Blood Cell Count 4.41 M/uL (4.33-5.43)
[2018-02-17] MEDS: FUROSEMIDE 20 MG/ 2ML VIAL IV SCH ×4 (06:51→17:00)
[2018-02-17] MEDS: PANTOPRAZOLE 40MG TABLET PO SCH (06:51)
[2018-02-17 07:18] LABS: BUN Blood Urea Nitrogen 10 mg/dL (6-20); Glucose Level 205 mg/dL (65-120); Magnesium 1.9 mg/dL (1.8-2.5); Thyroid Stimulating Hormone 0.46 uIU/mL (0.34-5.60)
[2018-02-17 07:29] LABS: Bicarbonate 34 mEq/L (21-31); Sodium Level 133 mEq/L (135-145)
[2018-02-17] MEDS ORDERED: POTASSIUM CL SA 10 MEQ TAB PO ONE ×2 (07:53→18:00)
--- NOTE | 2018-02-17 07:58 | P.CNS ---
Date of Consult: 02/17/18 Reason for Consult: Shortness of breath Primary Care Provider: None Chief Complaint: Pain all over, shortness of breath History of Present Illness: Patient is 37 years of age a poor historian presented with pain all over particularly in his legs right worse than the left denies any fever or chills he has been using his diuretics at home was found to have an elevated white count hypoxemia hypokalemia. Patient smokes heavily is been complaining of some hoarseness employed Allergies No Known Allergies Allergy (Unverified 02/16/18 09:07) Home Medications: Amlodipine [Norvasc] 10 mg PO BID 02/16/18 Furosemide [Lasix] 20 mg PO DAILY 02/16/18 Potassium Chloride [Klor-Con 10] 10 meq PO DAILY 02/16/18 - Past Medical/Surgical History Diabetic: No -: Hypertension -: GERD -: Chronic pain Psychosocial/ Personal History: The patient is single. He has 4 children. 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[employer] - Social History Smoking Status: Current every day smoker Alcohol use: No CD- Drugs: No Caffeine use: Yes Place of Residence: Home Review of Systems General: Weakness Respiratory: Shortness of Breath Musculoskeletal: Other (Pain in the lower extremity) Physical Examination Temp Pulse Resp BP Pulse Ox 99.0 F 92 H 20 165/91 H 95 02/17/18 04:00 02/17/18 06:51 02/17/18 04:00 02/17/18 06:51 02/17/18 04:00 General: Alert, Oriented x3 HEENT: Atraumatic Neck: Supple Respiratory: Clear to auscultation bilaterally Cardiovascular: Normal S1 S2, Edema (The patient has swelling on the right leg complains of tenderness) Gastrointestinal: Normal bowel sounds, Soft and benign Laboratory Data (last 24 hrs) 02/16/18 06:36: WBC 22.8 H*, Hgb 15.2, Hct 44.4, Plt Count 350 - Problems (1) Hypoxia Current Visit: Yes Status: Acute Plan: Patient is 37 years of age admitted with some shortness of breath he has lower extremity pain right worse than the left chronic hoarseness heavy smoker elevated white count mildly hypokalemic impairment of left ventricular function but possible that he has cellulitis of the right leg difficult to delineate continue with antibiotics I have added p.o. levofloxacin he is also on Zosyn blood cultures are pending there is no evidence of thromboembolism of consolidation possible pneumonia although patient has no obvious consolidation patient's renal function is normal
[2018-02-17] MEDS ORDERED: AMLODIPINE 5 MG TAB PO SCH (09:00)
[2018-02-17] MEDS: ARFORMOTEROL TARTRATE 15 MCG/2 ML VIAL.NEB NEB SCH ×2 (09:23→20:37)
--- NOTE | 2018-02-17 09:39 | RAD REPORT ---
EXAM DESCRIPTION: RAD - Chest Pa And Lat (2 Views) - 02/17/2018 8:16 am CLINICAL HISTORY: Shortness of breath. COMPARISON: 02/16/2018 FINDINGS: Linear subsegmental atelectasis is present in the right lung base. The lungs are otherwise clear. The heart is moderately enlarged. No displaced fractures. IMPRESSION: Linear subsegmental atelectasis in the right lung base, appearing mildly progressive sin ce the comparative study.
[2018-02-17] MEDS: levoFLOXacin 750 MG TAB PO SCH (09:48)
[2018-02-17] MEDS: BENZONATATE 100 MG CAP PO PRN (09:48)
--- NOTE | 2018-02-17 10:05 | RAD REPORT ---
EXAM DESCRIPTION: CT - CTFB CLINICAL HISTORY: Facial pain, dental pain. COMPARISON: None. TECHNIQUE: Axial 2 mm thick images of the face were obtained with sagittal and coronal reconstructio n images. All CT scans are performed using dose optimization technique as appropriate and may include automated exposure control or mA/KV adjustment according to patient size. FINDINGS: Significant crown erosion involving the left maxillary first premolar noted. Periapical ab scess is present involving this tooth measuring 7 mm. There is disruption of the buccal cortex of the anterior maxilla with a small subperiosteal abscess noted measuring 5 x 3 mm along the buccal cortex of the anterior maxilla extending inferiorly. The adjacent soft tissues are thickened.Additional construction site crossing guard wn erosions and periapical lucencies are present elsewhere.The mandible is intact. The globes and orbital contents are grossly unremarkable.Chronic left maxillary sinus opacification i s seen. IMPRESSION: Periapical abscess with adjacent subperiosteal abscess noted involving the left maxillar y first premolar as detailed. Chronic left maxillary sinusitis.
--- NOTE | 2018-02-17 10:09 | P.PN ---
Subjective Date of Service: 02/17/18 Primary Care Provider: None Chief Complaint: Pain all over, shortness of breath Subjective: Other (Patient doing slightly better. Less hoarse today. Patient on nasal cannula.) Physical Examination - Vital Signs Temperature: 97.8 F Blood Pressure: 166/100 Pulse: 100 Respirations: 20 Pulse Ox (%): 91 - Physical Exam General: Alert, In no apparent distress, Oriented x3, Cooperative HEENT: Atraumatic, Other (Patient reports some pain to the upper left incisor area.) Neck: Supple Respiratory: Crackles/rales (Mild crackles to the right base), Expiratory wheezes Cardiovascular: Normal pulses, Regular rate/rhythm Gastrointestinal: Normal bowel sounds, Soft and benign, Non-distended, No tenderness, No masses, No rebound, No guarding Musculoskeletal: No warmth, Other (Patient reports some tenderness and edema to the lower extremities bilateral) Neurological: Normal speech, Normal strength at 5/5 x4 extr, Normal tone, Normal affect - Studies Medications List Reviewed: Yes Assessment & Plan - Problems (Diagnosis) (1) Dyspnea Onset Date: 02/17/18 Current Visit: Yes Status: Acute Plan: Likely from atelectasis and underlying possible right lower lobe pneumonia. Will continue with antibiotic therapy. Repeat x-ray shows more atelectasis to the right base. Echocardiogram shows decrease left ventricular ejection fraction with an EF of 45%. Venous Doppler negative for DVT. Patient likely with underlying COPD/CHF. Will discuss with pulmonology. Qualifiers: Dyspnea type: shortness of breath Qualified Code(s): R06.02 - Shortness of breath; R06.00 - Dyspnea, unspecified; R06.01 - Orthopnea (2) Pneumonia Onset Date: 02/17/18 Current Visit: Yes Status: Acute Plan: Possible pneumonia noted. Continue as above. Qualifiers: Pneumonia type: due to unspecified organism Laterality: right Lung location: lower lobe of lung Qualified Code(s): J18.1 - Lobar pneumonia, unspecified organism (3) Hypoxia Onset Date: 02/17/18 Current Visit: Yes Status: Acute Plan: Will maintain sats above 90%. Patient may also have underlying component of sleep apnea. Patient may require BiPAP. Will discuss with pulmonology. Will wean off oxygen. (4) Tobacco abuse Onset Date: 02/17/18 Current Visit: Yes Status: Chronic Plan: Will address lifestyle modification education. Tobacco cessation will be addressed in detail. (5) Hypertension Onset Date: 02/17/18 Current Visit: Yes Status: Chronic Plan: Will discontinue Norvasc due to edema to the lower extremities. Will start metoprolol. Will adjust appropriately. Qualifiers: Hypertension type: essential hypertension Qualified Code(s): I10 - Essential (primary) hypertension (6) GERD (gastroesophageal reflux disease) Onset Date: 02/17/18 Current Visit: Yes Status: Chronic Plan: Will provide medication Qualifiers: Esophagitis presence: esophagitis presence not specified Qualified Code(s) : K21.9 - Gastro-esophageal reflux disease without esophagitis (7) Obstructive sleep apnea Onset Date: 02/17/18 Current Visit: Yes Status: Suspected Plan: Patient will need sleep study done as an outpatient. Await further recommendation from pulmonology. (8) Hypokalemia Onset Date: 02/17/18 Current Visit: Yes Status: Acute Plan: Will monitor and replace appropriately. Patient protocol in place. (9) Atelectasis Onset Date: 02/17/18 Current Visit: Yes Status: Acute Plan: Bilateral atelectasis noted. Will continue above. Will provide incentive spirometer. (10) COPD (chronic obstructive pulmonary disease) Current Visit: Yes Status: Suspected Plan: Suspect underlying COPD. Will continue with COPD treatment. Will discuss with pulmonology. Qualifiers: COPD type: chronic bronchitis (11) Poor dentition Current Visit: Yes Status: Acute Plan: Patient with poor dentition. Pain to the left upper incisor noted. CT scan of the face obtained. ENT consulted to further evaluate. (12) CHF (congestive heart failure) Current Visit: Yes Status: Acute Plan: Echo done. Mild left ventricular ejection fraction noted with an EF of 45%. Will continue with Lasix. Will teach on 1500 cc per day fluid restriction. Will monitor closely. Qualifiers: Heart failure type: systolic Heart failure chronicity: acute on chronic Qualified Code(s): I50.23 - Acute on chronic systolic (congestive) heart failure (13) Edema Current Visit: Yes Status: Acute Plan: Edema to lower extremities noted. Will continue with IV Lasix. Patient with underlying CHF. Will check FCO panel. Will ambulate patient. Qualifiers: Edema type: unspecified Qualified Code(s): R60.9 - Edema, unspecified (14) Hoarseness Current Visit: Yes Status: Chronic Plan: This appears chronic. Pulmonology consulted ENT to further evaluate. Case discussed with ENT. ENT plans for scope to evaluate further. Discharge Plan: Home Plan to discharge in: Greater than 2 days Time Spent Managing Pts Care (In Minutes): 55
[2018-02-17 10:14] LABS: Blood Morphology Comment NOT SEEN (NOT SEEN); Platelet Estimate INCR
[2018-02-17 11:24] LABS: Barbiturates NEGATIVE; Benzodiazepines NEGATIVE; Cocaine NEGATIVE; Opiates NEGATIVE; Phencyclidine NEGATIVE; THC Cannibis NEGATIVE
[2018-02-17 11:31] LABS: METHAMPHETAM POSITIVE (NEGATIVE)
[2018-02-17 16:07] LABS: Urine Appearance CLEAR; Urine Bilirubin NEGATIVE (NEG); Urine Blood NEGATIVE (NEG); Urine Color YELLOW; Urine Glucose NEGATIVE (NEG); Urine Protein TRACE (NEG)
[2018-02-17 16:18] LABS: Urine Microscopic Reflex ORDER UMIC
[2018-02-17 16:54] LABS: Urine Bacteria NONE SEEN /HPF (NONE SEEN); Urine Culture Reflex Order NOT NEEDED; Urine RBC NONE SEEN /HPF (NONE SEEN)
[2018-02-17] MEDS: ENOXAPARIN 40 MG/0.4 ML SQ SCH (17:00)
[2018-02-17] MEDS: predniSONE 20 MG TAB PO SCH (20:47)
[2018-02-17] MEDS: METOPROLOL TAR 50 MG TAB PO SCH (20:47)
[2018-02-18] MEDS: PIPER/TAZO/NS 3.375gm 3.375 GM/100 ML BAG IVPB SCH ×4 (00:43→23:54)
--- NOTE | 2018-02-18 02:41 | P.PN ---
Date of Service: 02/17/18 Called by nurse, JESS, Janette Colmenares, regarding patient not appearing well and facial swelling. Patient states that he was trying to let people know about his toothache. He appears to have dental caries and may have dental abscess as the etiology of fever. Will do CT of the face to evaluate for dental abscess, and will also reassess in 24hrs.
[2018-02-18] MEDS: TRAMADOL HCL 50 MG TAB PO SCH ×5 (05:58→20:28)
[2018-02-18] MEDS: PANTOPRAZOLE 40MG TABLET PO SCH (05:58)
[2018-02-18 06:31] LABS: Absolute Lymphocytes (CBC) 1.7 K/uL (0.7-4.9); Absolute Monocytes 1.7 K/uL (0.1-1.3); Absolute Neutrophil 24.6 K/uL (1.8-8.0); Basophils % 0.3 % (0-1.3); Hematocrit 39.9 % (39.6-49.0); Lymphocytes % 6.2 % (15.3-44.8); MCH 32.4 pg (27.0-35.0); MCV 91.7 fL (80-100); MPV 7.9 fL (7.6-11.3); Monocytes % 6.1 % (3.3-12.3); RBC Red Blood Cell Count 4.35 M/uL (4.33-5.43)
[2018-02-18 06:43] LABS: BUN Blood Urea Nitrogen 11 mg/dL (6-20); Bicarbonate 35 mEq/L (21-31); Glucose Level 114 mg/dL (65-120); Magnesium 2.3 mg/dL (1.8-2.5); Potassium 4.2 mEq/L (3.6-5.0); Sodium Level 136 mEq/L (135-145)
[2018-02-18] MEDS: ARFORMOTEROL TARTRATE 15 MCG/2 ML VIAL.NEB NEB SCH ×2 (08:03→19:19)
[2018-02-18] MEDS: FUROSEMIDE 20 MG/ 2ML VIAL IV SCH ×2 (09:32→16:56)
[2018-02-18] MEDS: predniSONE 20 MG TAB PO SCH ×2 (09:33→20:22)
[2018-02-18] MEDS: METOPROLOL TAR 50 MG TAB PO SCH ×2 (09:33→20:22)
[2018-02-18] MEDS: levoFLOXacin 750 MG TAB PO SCH (09:33)
[2018-02-18 09:37] LABS: Blood Morphology Comment NOT SEEN (NOT SEEN); Platelet Estimate ADEQ
--- NOTE | 2018-02-18 13:56 | PN ---
Date of Progress Note: 02/18/2018 Subjective: The patient is seen and examined. Chart reviewed and case discussed with RN. The patient states he still has not been able to get up and walk around well. States his shortness of breath is better. Review of Systems: Negative except as above. Medications: Reviewed. Physical Examination: Vital Signs: Temperature 97.7, heart rate 83, blood pressure 140/91, respirations 16, O2 97% on room air. General: Awake, alert, oriented x3. Some mild distress. Obese male, BMI 31. CV: S1, S2. No murmurs. Regular rate and rhythm. Peripheral pulses present. Respiratory: Diminished breath sounds. No wheezing. No crackles. Gastrointestinal: Abdomen is soft, nontender, and nondistended. Positive bowel sounds. No guarding or rigidity. Extremities: No clubbing, cyanosis. Pedal edema is present. Neurologic: Nonfocal. Laboratory Data: Sodium 136, potassium 4.2, chloride 95, CO2 35, BUN 11, creatinine 0.96, glucose 114, calcium 8.9, magnesium 2.3. WBC 28.2, H and H 14.1 and 39.9, platelets 308, neutrophils 87%. Blood cultures, no growth to date. Sputum culture, normal quantity of respiratory anton. Group A strep is negative. Throat culture, normal upper respiratory anton. Assessment And Plan: A 37-year-old male with: 1. Dyspnea, likely from atelectasis and right lower lobe pneumonia. We will continue antibiotic therapy. Echo shows decreased left ventricular ejection fraction, ejection fraction of 45%. Venous Doppler negative for deep venous thrombosis. Likely has underlying chronic obstructive pulmonary disease, congestive heart failure. Pulmonology on board. Appreciate Dr. Coronado's input. 2. Pneumonia, right lower lobe. Cultures negative to date. We will continue antibiotics. 3. Hypoxia. The patient is now off supplemental oxygen. 4. Hoarseness, chronic. The patient will need an ENT followup, possible scope. 5. Nicotine dependence with cigarette smoking, counseled. 6. Essential hypertension. Medications adjusted. Norvasc discontinued due to edema of the lower extremities. Continue metoprolol. 7. Gastroesophageal reflux disease without esophagitis, chronic. 8. Obstructive sleep apnea. The patient will need a sleep study done as an outpatient. 9. Hypokalemia, replace and monitor. 10. Atelectasis. Continue incentive spirometer and ambulate. 11. Chronic obstructive pulmonary disease, suspect underlying chronic obstructive pulmonary disease. We will continue with nebulizer treatments. 12. Poor dentition. The patient has pain in the left upper incisor. ENT has been consulted; however, may not be available. CT shows a periapical abscess with adjacent periosteal abscess noted involving the left maxillary first premolar as detailed with chronic left maxillary sinusitis. The patient will need to follow up with the oral surgeon as soon as possible. 13. Congestive heart failure, systolic, acute on chronic systolic dysfunction. Continue with Lasix, fluid restriction, monitor I's and O's. 14. Edema in bilateral lower extremities. Continue with Lasix. Secondary to congestive heart failure. FCO panel pending. Ambulate. Plan: GI and DVT prophylaxis with PPI and Lovenox. Continue IV antibiotics, follow up on labs, and monitor closely. /LESLYE Voice ID: [id number] Report ID: [id number]
[2018-02-18] MEDS: ONDANSETRON 4 MG/2 ML VIAL IV PRN (16:56)
[2018-02-18] MEDS: ENOXAPARIN 40 MG/0.4 ML SQ SCH (16:56)
[2018-02-18] MEDS: NICOTINE 14 MG/PAT TD SCH (20:23)
[2018-02-19 05:03] LABS: Absolute Lymphocytes (CBC) 1.4 K/uL (0.7-4.9); Absolute Monocytes 0.9 K/uL (0.1-1.3); Basophils % 0.4 % (0-1.3); Hematocrit 42.2 % (39.6-49.0); Lymphocytes % 6.1 % (15.3-44.8); MCH 32.3 pg (27.0-35.0); MCV 93.4 fL (80-100); MPV 7.2 fL (7.6-11.3); Monocytes % 3.9 % (3.3-12.3); RBC Red Blood Cell Count 4.51 M/uL (4.33-5.43)
[2018-02-19 05:17] LABS: BUN Blood Urea Nitrogen 18 mg/dL (6-20); Bicarbonate 36 mEq/L (21-31); Glucose Level 167 mg/dL (65-120); Magnesium 2.3 mg/dL (1.8-2.5); Potassium 3.8 mEq/L (3.6-5.0); Sodium Level 136 mEq/L (135-145)
[2018-02-19] MEDS: PANTOPRAZOLE 40MG TABLET PO SCH (06:03)
[2018-02-19] MEDS: ARFORMOTEROL TARTRATE 15 MCG/2 ML VIAL.NEB NEB SCH ×2 (07:31→19:29)
[2018-02-19] MEDS: PIPER/TAZO/NS 3.375gm 3.375 GM/100 ML BAG IVPB SCH ×2 (08:34→16:44)
[2018-02-19] MEDS: TRAMADOL HCL 50 MG TAB PO SCH ×4 (08:36→21:09)
[2018-02-19] MEDS: FUROSEMIDE 20 MG/ 2ML VIAL IV SCH ×2 (08:36→16:41)
[2018-02-19] MEDS: levoFLOXacin 750 MG TAB PO SCH (08:36)
[2018-02-19] MEDS: METOPROLOL TAR 50 MG TAB PO SCH ×2 (08:37→21:11)
[2018-02-19] MEDS: predniSONE 20 MG TAB PO SCH ×2 (08:37→21:09)
[2018-02-19] MEDS: ACETAMINOPHEN 500 MG TAB PO PRN (08:37)
[2018-02-19] MEDS: NICOTINE 14 MG/PAT TD SCH (08:38)
[2018-02-19] MEDS ORDERED: POTASSIUM CL SA 10 MEQ TAB PO ONE (08:43)
[2018-02-19] MEDS ORDERED: NA CHLORIDE 0.9% 1,000 ML IV SCH (09:00)
--- NOTE | 2018-02-19 13:04 | PN ---
Date of Progress Note: 02/19/2018 Subjective: The patient is seen and examined, chart reviewed, and case discussed with RN. The patie nt states that, his leg swelling is improved slightly. Still having some difficulty ambulating. The patient had a fever of 100.4, has been tachycardic with a pulse in the 90s. The patient says his co ughing and breathing is better. Review of Systems: Negative except as above. Medications: Reviewed. Physical Examination: Vital Signs: Temperature 97, heart rate 70, blood pressure 135/77, respirations 18, and O2 saturatio n 95% on 2 L via nasal cannula. General: awake, alert, oriented x3, in some mild distress. Obese male, ill-appearing. CV: S1, S2. No murmurs. Regular rate and rhythm. Peripheral pulses present. Respiratory: diminished breath sounds on the right side, improving. No wheezing, crackles. No use of accessory muscles. Gastrointestinal: Abdomen is soft, nontender, nondistended. Positive bowel sounds. No palpable mas ses. Extremities: No clubbing, cyanosis. The patient does have lower extremity edema, improving. Neurologic: Nonfocal. Laboratory Data: Sodium 136, potassium 3.8, chloride 94, CO2 36, BUN 18, creatinine 1.05, glucose 16 7, lactate 16.1, calcium 9.1, and magnesium 2.3. Procalcitonin 0.37. WBC 22.3, H and H 14.6, 42.2, platelets 429, and neutrophils 89%. No bands. Blood cultures, no growth to date. Sputum culture, n ormal anton. Assessment: A 37-year-old male with; 1.Dyspnea, likely secondary to atelectasis and right lower lobe pneumonia, improving. Wean off oxyg en as tolerated. Ejection fraction on echocardiogram shows 45%. CT angio was negative for pulmonary embolism. Doppler negative for deep venous thrombosis. The patient likely does have underlying chr onic obstructive pulmonary disease and congestive heart failure. Dr. Coronado on board. 2.Pneumonia, right lower lobe. Cultures negative to date. Continue IV antibiotics. Follow up on s putum cultures. 3.Probable sleep apnea. The patient will need outpatient sleep study. 4.Hypoxia. Wean off oxygen as tolerated. 5.Nicotine dependence with cigarette smoking. Counseled. 6.Essential hypertension, stable. 7.Gastroesophageal reflux disease without esophagitis. 8.Hypokalemia, replace and monitor. 9.Atelectasis. Continue incentive spirometry, ambulate. 10.Chronic obstructive pulmonary disease, most probable. No official diagnosis. We will continue w ith neb treatments. The patient will need official PFTs as an outpatient. 11.Abscess in the left maxillary first premolar. CT sinus reviewed. The patient will need to follo w up with oral surgeon after discharge. 12.Congestive heart failure, systolic dysfunction, acute on chronic. Continue with Lasix, fluid res triction, daily weights. 13.Bilateral lower extremity edema secondary to above, improving. 14.Hoarseness, chronic. The patient needs outpatient ENT followup, possible laryngoscopy. 15.Gastrointestinal and deep venous thrombosis prophylaxis with PPI and Lovenox. Plan: Likely discharge in a.m. if continues to improve. White count continues to improve, sepsis. The patient was flying for sepsis. Lactate and procalcitonin are negative. Blood cultures no growth to date. We will start on some gentle IV fluids. /MODL Voice ID: [id number] Report ID: [id number]
[2018-02-19] MEDS: ENOXAPARIN 40 MG/0.4 ML SQ SCH (16:41)
[2018-02-19] MEDS: ONDANSETRON 4 MG/2 ML VIAL IV PRN (16:41)
[2018-02-20] MEDS ORDERED: MAGNES/ALUMIN/SIMET 30ML UCUP PO PRN (00:42)
[2018-02-20] MEDS: PIPER/TAZO/NS 3.375gm 3.375 GM/100 ML BAG IVPB SCH ×2 (01:15→08:55)
[2018-02-20 05:25] LABS: Hematocrit 40.1 % (39.6-49.0); MCH 32.1 pg (27.0-35.0); MCV 93.5 fL (80-100); MPV 7.1 fL (7.6-11.3); RBC Red Blood Cell Count 4.29 M/uL (4.33-5.43)
[2018-02-20] MEDS: PANTOPRAZOLE 40MG TABLET PO SCH (05:40)
[2018-02-20 06:09] LABS: BUN Blood Urea Nitrogen 18 mg/dL (6-20); Bicarbonate 35 mEq/L (21-31); Glucose Level 153 mg/dL (65-120); Potassium 3.8 mEq/L (3.6-5.0); Sodium Level 136 mEq/L (135-145)
[2018-02-20] MEDS ORDERED: POTASSIUM 25 MEQ EFFERV TAB PO ONE (06:27)
[2018-02-20] MEDS: ARFORMOTEROL TARTRATE 15 MCG/2 ML VIAL.NEB NEB SCH (08:00)
--- NOTE | 2018-02-20 08:13 | P.CNS ---
Date of Consult: 02/17/18 Stopped by in the AM to evaluation patient but he was on his way to CT. I reviewed the CT images and there is a round appearing mass in the larynx but difficult to discern eitology. No significant/pathologist appear lymph nodes on my review. Would benefit from FOL and will likely need direct laryngoscopy and biopsy given history. Due to current lung issues, will wait for acute issues to resolved prior to considering GA. PLan for Output ENT FU
[2018-02-20] MEDS: NICOTINE 14 MG/PAT TD SCH (08:24)
[2018-02-20] MEDS: METOPROLOL TAR 50 MG TAB PO SCH (08:56)
--- NOTE | 2018-02-20 08:56 | P.PN ---
Subjective Date of Service: 02/20/18 Primary Care Provider: None Chief Complaint: Pain all over, shortness of breath Subjective: Improving Physical Examination - Vital Signs Temperature: 98.1 F Blood Pressure: 178/96 Pulse: 83 Respirations: 20 Pulse Ox (%): 95 - Physical Exam General: Alert, In no apparent distress, Oriented x3, Cooperative HEENT: Atraumatic Neck: Supple Respiratory: Clear to auscultation bilaterally, Normal air movement Cardiovascular: Normal pulses, Regular rate/rhythm Gastrointestinal: Normal bowel sounds, Soft and benign, Non-distended, No tenderness, No masses, No rebound, No guarding Musculoskeletal: No erythema, No tenderness, No warmth Integumentary: No tenderness/swelling, No erythema, No warmth, No cyanosis Neurological: Normal speech, Normal strength at 5/5 x4 extr, Normal tone, Normal affect Lymphatics: No axilla or inguinal lymphadenopathy - Studies Medications List Reviewed: Yes Assessment & Plan - Problems (Diagnosis) (1) Dyspnea Onset Date: 02/17/18 Current Visit: Yes Status: Acute Plan: Likely from atelectasis and underlying possible right lower lobe pneumonia. Patient improved. If room-air saturations within normal range then the patient can be discharged home. Patient will need to continue with antibiotic therapy. Patient will need to be treated for his COPD and CHF. CT scan shows no pulmonary embolism. Venous Doppler shows no DVT. Education on CHF, COPD has been provided. Blood pressure medication adjusted. Lasix also adjusted. Patient will need close follow up with PCP, pulmonology and oral surgery as an outpatient. Qualifiers: Dyspnea type: shortness of breath Qualified Code(s): R06.02 - Shortness of breath; R06.00 - Dyspnea, unspecified; R06.01 - Orthopnea (2) Pneumonia Onset Date: 02/17/18 Current Visit: Yes Status: Acute Plan: Possible pneumonia noted. Continue as above. Qualifiers: Pneumonia type: due to unspecified organism Laterality: right Lung location: lower lobe of lung Qualified Code(s): J18.1 - Lobar pneumonia, unspecified organism (3) Hypoxia Onset Date: 02/17/18 Current Visit: Yes Status: Acute Plan: Will maintain sats above 90%. Patient may also have underlying component of sleep apnea. Will wean off oxygen. Will check oxygen saturations. Will need sleep study as an outpatient. (4) Tobacco abuse Onset Date: 02/17/18 Current Visit: Yes Status: Chronic Plan: Will address lifestyle modification education. Tobacco cessation will be addressed in detail. (5) Hypertension Onset Date: 02/17/18 Current Visit: Yes Status: Chronic Plan: Will increase metoprolol. Qualifiers: Hypertension type: essential hypertension Qualified Code(s): I10 - Essential (primary) hypertension (6) GERD (gastroesophageal reflux disease) Onset Date: 02/17/18 Current Visit: Yes Status: Chronic Plan: Will continue with medication Qualifiers: Esophagitis presence: esophagitis presence not specified Qualified Code(s) : K21.9 - Gastro-esophageal reflux disease without esophagitis (7) Obstructive sleep apnea Onset Date: 02/17/18 Current Visit: Yes Status: Suspected Plan: Patient will need sleep study done as an outpatient. (8) Hypokalemia Onset Date: 02/17/18 Current Visit: Yes Status: Acute Plan: Will monitor and replace appropriately. Patient protocol in place. (9) Atelectasis Onset Date: 02/17/18 Current Visit: Yes Status: Acute Plan: Bilateral atelectasis noted. Will continue above. Will provide incentive spirometer. (10) COPD (chronic obstructive pulmonary disease) Current Visit: Yes Status: Suspected Plan: Suspect underlying COPD. Will continue with COPD treatment. Will discuss with pulmonology. Qualifiers: COPD type: chronic bronchitis (11) Poor dentition Current Visit: Yes Status: Acute Plan: Patient with poor dentition. Pain to the left upper incisor noted. CT scan of the face obtained. Patient will need to see Oral surgery as an outpatient. (12) CHF (congestive heart failure) Current Visit: Yes Status: Acute Plan: Echo done. Mild left ventricular ejection fraction noted with an EF of 45%. Will continue with Lasix. Will teach on 1500 cc per day fluid restriction. Will monitor closely. Qualifiers: Heart failure type: systolic Heart failure chronicity: acute on chronic Qualified Code(s): I50.23 - Acute on chronic systolic (congestive) heart failure (13) Edema Current Visit: Yes Status: Acute Plan: Edema to lower extremities noted. Patient transition to oral Lasix. Qualifiers: Edema type: unspecified Qualified Code(s): R60.9 - Edema, unspecified (14) Hoarseness Current Visit: Yes Status: Chronic Plan: This appears chronic. Patient will need follow up with oral surgery and ENT as an outpatient to further evaluate. Discharge Plan: Home Plan to discharge in: 24 Hours Time Spent Managing Pts Care (In Minutes): 55
[2018-02-20] MEDS: TRAMADOL HCL 50 MG TAB PO SCH ×2 (08:57→13:00)
[2018-02-20] MEDS: predniSONE 20 MG TAB PO SCH (08:57)
[2018-02-20] MEDS: levoFLOXacin 750 MG TAB PO SCH (08:58)
[2018-02-20] MEDS ORDERED: FUROSEMIDE 40 MG TABLET PO SCH (09:00)
[2018-02-20] MEDS ORDERED: LOSARTAN POTASSIUM 50 MG TABLET PO SCH (09:00)
[2018-02-20] MEDS ORDERED: METOPROLOL TAR 50 MG TAB PO SCH (09:00)
[2018-02-20] MEDS ORDERED: AMLODIPINE 5 MG TAB PO SCH (09:00)
--- NOTE | 2018-02-20 09:41 | RAD REPORT ---
EXAM DESCRIPTION: RAD - Chest Pa And Lat (2 Views) - 02/20/2018 9:19 am CLINICAL HISTORY: Pneumonia COMPARISON: 02/17/2018, 02/16/2018 FINDINGS: The lungs are clear. Trace pleural fluid. The heart is upper limit normal in size. No disp laced fractures.
--- NOTE | 2018-02-20 10:15 | P.DS ---
Admission Date: 02/16/18 Discharge Date: 02/20/18 Primary Care Provider: None Disposition: ROUTINE DISCHARGE Discharge Condition: GOOD Reason for Admission: Pain all over, shortness of breath Consultations: Pulmonary-Dr. Coronado ENT-Dr. Chambers Procedures: CT scan face and neck: FINDINGS: Significant crown erosion involving the left maxillary first premolar noted. Periapical abscess is present involving this tooth measuring 7 mm. There is disruption of the buccal cortex of the anterior maxilla with a small subperiosteal abscess noted measuring 5 x 3 mm along the buccal cortex of the anterior maxilla extending inferiorly. The adjacent soft tissues are thickened.Additional crown erosions and periapical lucencies are present elsewhere.The mandible is intact. The globes and orbital contents are grossly unremarkable.Chronic left maxillary sinus opacification is seen. IMPRESSION: Periapical abscess with adjacent subperiosteal abscess noted involving the left maxillary first premolar as detailed. Chronic left maxillary sinusitis. A vague polypoid lesion is seen in the anterior aspect of the larynx at the level of the cricoid cartilage measuring 8 x 6 mm. The findings appear nonspecific, suggest direct visualization followup. CT chest: FINDINGS: No evidence of pulmonary thromboembolism. The very distal inferior branches are limited in assessment due to respiratory motion artifact. No acute aortic finding demonstrated. Linear atelectasis is present in both lung bases, greater on the right. Early infiltrate posterior right lung base is difficult to exclude. Small area of ground-glass opacity is seen in the lingula. No significant pericardial or pleural fluid. Mildly prominent axillary and mediastinal lymph nodes are seen, most likely reactive. No concerning bony finding. IMPRESSION: No evidence of pulmonary thromboembolism. Linear subsegmental atelectasis in both posterior lung bases, greater on the right. Early infiltrate posterior right lung base is not excluded. Venous Doppler lower extremity: No DVT noted. Echocardiogram: Ejection fraction 45%. Mild the depressed left ventricular ejection fraction. Left ventricular hypertrophy. Dilated left atrium. Impaired left ventricular relaxation. - Problems (1) Dyspnea Onset Date: 02/17/18 Current Visit: Yes Status: Acute Qualifiers: Dyspnea type: shortness of breath Qualified Code(s): R06.02 - Shortness of breath; R06.00 - Dyspnea, unspecified; R06.01 - Orthopnea (2) Pneumonia Onset Date: 02/17/18 Current Visit: Yes Status: Acute Qualifiers: Pneumonia type: due to unspecified organism Laterality: right Lung location: lower lobe of lung Qualified Code(s): J18.1 - Lobar pneumonia, unspecified organism (3) Hypoxia Onset Date: 02/17/18 Current Visit: Yes Status: Acute (4) Tobacco abuse Onset Date: 02/17/18 Current Visit: Yes Status: Chronic (5) Hypertension Onset Date: 02/17/18 Current Visit: Yes Status: Chronic Qualifiers: Hypertension type: essential hypertension Qualified Code(s): I10 - Essential (primary) hypertension (6) GERD (gastroesophageal reflux disease) Onset Date: 02/17/18 Current Visit: Yes Status: Chronic Qualifiers: Esophagitis presence: esophagitis presence not specified Qualified Code(s) : K21.9 - Gastro-esophageal reflux disease without esophagitis (7) Obstructive sleep apnea Onset Date: 02/17/18 Current Visit: Yes Status: Suspected (8) Hypokalemia Onset Date: 02/17/18 Current Visit: Yes Status: Acute (9) Atelectasis Onset Date: 02/17/18 Current Visit: Yes Status: Acute (10) COPD (chronic obstructive pulmonary disease) Current Visit: Yes Status: Suspected Qualifiers: COPD type: chronic bronchitis (11) Poor dentition Current Visit: Yes Status: Acute (12) CHF (congestive heart failure) Current Visit: Yes Status: Acute Qualifiers: Heart failure type: systolic Heart failure chronicity: acute on chronic Qualified Code(s): I50.23 - Acute on chronic systolic (congestive) heart failure (13) Edema Current Visit: Yes Status: Acute Qualifiers: Edema type: unspecified Qualified Code(s): R60.9 - Edema, unspecified (14) Hoarseness Current Visit: Yes Status: Chronic (15) Abnormal CT scan Current Visit: Yes Status: Acute Brief History of Present Illness: 37-year-old male presented emergency room with pain all over and some shortness of breath. Patient reported pain all over his body. Patient is a poor historian. ER physician reports that the patient was evaluated at home by EMS. Patient was hypoxic. Patient was given Lasix by EMS. ER physician reports that the patient has been taking Lasix and Norvasc at home. Patient was able to put out about 1300 cc of fluid. Patient became agitated and given Ativan. Patient had increased sedation with medication. Patient still had some shortness of breath. Lab showed a pH is 7.4, PC of 249, PO2 of 63. White count elevated at 22.8. Sodium 137, potassium 2.7, bicarb 36. BUN of 13, creatinine 1.19 with a GFR of 82. Glucose 44. Magnesium 1.8. CT scan showed atelectasis bilateral with possible right early infiltrate. Due to nature the findings the patient was admitted for further evaluation. When I evaluated the patient, he still had some increased sedation. Patient snoring. Patient was able to respond appropriately. Patient reports a history of hypertension. Patient has been taking ibuprofen for pain on a regular basis. Patient smokes. Patient reports that he has been having a cough with a use of lisinopril. Hospital Course: Patient presented with shortness of breath. Patient found to have atelectasis with right lower lobe pneumonia. CT scan of the chest showed no pulmonary embolism. Patient was evaluated by pulmonology. During the course of his stay his symptoms improved. At discharge he did not require any oxygen. His progress was slow. At discharge patient will continue with Levaquin 750 mg 1 pill once daily for 7 days. Recommendation is to recheck chest x-ray in 2-4 weeks to monitor resolution. Patient will be provided Tessalon Perles 1 pill 3 times a day as needed for cough. Recommendations for the patient follow up with pulmonology as an outpatient to further monitor and address. Patient likely has underlying COPD. Patient was given COPD treatment. Patient with history of tobacco abuse. Patient treated for COPD exacerbation. This slowly improved during the course of his stay. As mentioned above the patient did not require any oxygen at discharge. At discharge patient will continue with prednisone 20 mg 1 pill twice daily for 5 days then 1 pill once daily for 5 days. New medications include Symbicort 160 mcg 2 puffs twice daily and Pro air 2 puffs 3 times a day as needed for shortness of breath. COPD education will be provided. Recommendation is the patient follow up with pulmonology in 1 -2 weeks to monitor his progress. Patient has poor dentition. Abscess to 1 of his molars was noted. Patient was started on IV antibiotic therapy. Patient was evaluated by ENT. A CT scan also showed a lesion to the larynx. He also had reported some chronic coarseness. ENT recommended follow-up as an outpatient in 2-4 weeks. Patient will need direct visualization and possible biopsy as an outpatient. Recommendation is for the patient to see oral surgery as an outpatient to consider removal of mole. Patient will continue with antibiotic therapy. Patient found to have CHF, Systolic dysfunction. Patient previously taking Lasix. Medications have been adjusted. Patient was taught fluid restriction. Medications were adjusted during the course of his stay. At discharge Lasix has been increased to 40 mg 1 pill twice daily. Patient will continue with a 1500 cc per day fluid restriction. Patient may need to limit his activities. Patient will need to monitor his weight daily. If his weight increases by more than 5 lb, he is to contact his PCP for further recommendation. Recommendation is for the patient follow up with cardiology as an outpatient to further evaluate and monitor. Patient will likely need further cardiac evaluation. Patient has hypertension. Medications have been adjusted. Patient will no longer take Norvasc. At discharge patient will continue with new medication- metoprolol 100 mg 1 pill twice daily. Recommendation is for the patient to monitor his blood pressure daily. Recommendation is to maintain blood pressures less 150/80. Further adjustment in his medication may be required. If his blood pressure remains elevated Norvasc may need to be added back. This can be further addressed by his PCP. Patient will be provided tobacco cessation education. Nicotine patches will be provided at discharge. Patient may return to work in 1 week if much improved. Patient should follow up with his PCP for evaluation prior to going back to work. Vital Signs/Physical Exam: Temp Pulse Resp BP Pulse Ox 98.1 F 83 20 178/96 H 95 02/20/18 08:56 02/20/18 08:56 02/20/18 08:56 02/20/18 08:56 02/20/18 08:56 General: Alert, In no apparent distress, Oriented x3, Cooperative HEENT: Atraumatic, Mucous membr. moist/pink Neck: Supple Respiratory: Clear to auscultation bilaterally, Normal air movement Cardiovascular: Normal pulses, Regular rate/rhythm Gastrointestinal: Normal bowel sounds, Soft and benign, Non-distended, No tenderness, No masses, No rebound, No guarding Musculoskeletal: No erythema, No tenderness, No warmth Integumentary: No tenderness/swelling, No erythema, No warmth, No cyanosis Neurological: Normal speech, Normal strength at 5/5 x4 extr, Normal tone, Normal affect Lymphatics: No axilla or inguinal lymphadenopathy Laboratory Data at Discharge: WBC 17.0 K/uL (4.3-10.9) H D 02/20/18 05:01 Hgb 13.8 g/dL (13.6-17.9) 02/20/18 05:01 Hct 40.1 % (39.6-49.0) 02/20/18 05:01 Plt Count 457 K/uL (152-406) H 02/20/18 05:01 PT 11.8 SECONDS (9.5-12.5) 02/16/18 06:36 INR 1.00 02/16/18 06:36 APTT 29.6 SECONDS (24.3-36.9) 02/16/18 06:36 Sodium 136 mEq/L (135-145) 02/20/18 05:01 Potassium 3.8 mEq/L (3.6-5.0) 02/20/18 05:01 BUN 18 mg/dL (6-20) 02/20/18 05:01 Creatinine 1.02 mg/dL (0.61-1.24) 02/20/18 05:01 Glucose 153 mg/dL (65-120) H 02/20/18 05:01 Magnesium 2.3 mg/dL (1.8-2.5) 02/19/18 04:43 Total Bilirubin 0.5 mg/dL (0.3-1.2) 02/16/18 06:36 AST 25 IU/L (10-42) 02/16/18 06:36 ALT 30 IU/L (10-60) 02/16/18 06:36 Alkaline Phosphatase 56 IU/L (42-121) 02/16/18 06:36 B-Natriuretic Peptide 30 pg/ml (<=100) 02/16/18 06:36 Home Medications: Albuterol Sulfate [Proair Hfa] 8.5 gm IH TID PRN #1 hfa.aer.ad 02/20/18 Benzonatate [Tessalon Perle*] 200 mg PO TID PRN #30 cap 02/20/18 Budesonide/Formoterol Fumarate [Symbicort 160-4.5 Mcg Inhaler] 2 puff IH BID #1 hfa.aer.ad 02/20/18 Furosemide [Lasix*] 40 mg PO BIDL #60 tab 02/20/18 Metoprolol Tartrate 100 mg PO BID #60 tablet 02/20/18 Nicotine [Nicoderm*] 14 mg TD DAILY #30 patch.td24 02/20/18 Pantoprazole [Protonix Tab*] 40 mg PO DAILYAC #30 tab 02/20/18 levoFLOXacin [Levaquin*] 750 mg PO DAILY #7 tab 02/20/18 predniSONE [Prednisone*] 20 mg PO SEECOM #15 tab 02/20/18 New Medications: Albuterol Sulfate [Proair Hfa] 8.5 gm IH TID PRN #1 hfa.aer.ad PRN Reason: Shortness Of Breath Benzonatate [Tessalon Perle*] 200 mg PO TID PRN #30 cap PRN Reason: Cough Budesonide/Formoterol Fumarate [Symbicort 160-4.5 Mcg Inhaler] 2 puff IH BID #1 hfa.aer.ad Furosemide [Lasix*] 40 mg PO BIDL #60 tab levoFLOXacin [Levaquin*] 750 mg PO DAILY #7 tab Metoprolol Tartrate 100 mg PO BID #60 tablet Nicotine [Nicoderm*] 14 mg TD DAILY #30 patch.td24 Pantoprazole [Protonix Tab*] 40 mg PO DAILYAC #30 tab predniSONE [Prednisone*] 20 mg PO SEECOM #15 tab Patient Discharge Instructions: 1. Patient will need to follow up with PCP in 1- 2 weeks to monitor and address. 2. Patient presented with shortness of breath. Patient found to have atelectasis with right lower lobe pneumonia. At discharge patient will continue with Levaquin 750 mg 1 pill once daily for 7 days. Recommendation is to recheck chest x-ray and lab-CBC in 2-4 weeks to monitor resolution. Patient will be provided Tessalon Perles 1 pill 3 times a day as needed for cough. Recommendations for the patient follow up with pulmonology as an outpatient to further monitor and address. 3. Patient likely has underlying COPD. Patient treated for COPD exacerbation. At discharge patient will continue with prednisone 20 mg 1 pill twice daily for 5 days then 1 pill once daily for 5 days. New medications include Symbicort 160 mcg 2 puffs twice daily and Pro air 2 puffs 3 times a day as needed for shortness of breath. COPD education will be provided. Recommendation is the patient follow up with pulmonology in 1-2 weeks to monitor his progress. 3. Patient has poor dentition. Abscess to 1 of his molars was identified. He also reported chronic hoarseness. Patient will continue with antibiotic therapy as stated above. Recommendation is for the patient to follow up with oral surgery as an outpatient for molar removal. 4. Patient had abnormal CT scan showing possible lesion to the larynx. Patient with history of chronic hoarseness. Patient evaluated by ENT. Recommendation is for the patient to follow up with ENT in 2-4 weeks to monitor his progress. Patient will need direct visualization and possible biopsy as an outpatient. 5. Patient found to have CHF, Systolic dyfunction. Medications have been adjusted. At discharge Lasix has been increased to 40 mg 1 pill twice daily. Patient will continue with a 1500 cc per day fluid restriction. Patient may need to limit his activities. Patient will need to monitor his weight daily. If his weight increases by more than 5 lb, he is to contact his PCP for further recommendation. Recommendation is for the patient follow up with cardiology as an outpatient to further evaluate and monitor. Patient will likely need further cardiac evaluation. Medications may need to be further adjusted. 6. Patient has hypertension. Medications have been adjusted. Patient will no longer take Norvasc. At discharge patient will continue with new medication-metoprolol 100 mg 1 pill twice daily. Recommendation is for the patient to monitor his blood pressure daily. Recommendation is to maintain blood pressures less 150/80. Further adjustment in his medication may be required. If his blood pressure remains elevated Norvasc may need to be added back. This can be further addressed by his PCP. 7. Patient will be provided tobacco cessation education. Nicotine patches will be provided at discharge. 8. Patient may return to work in 1 week if much improved. Patient should follow up with his PCP for evaluation prior to going back to work. Diet: AHA Activity: Ad cee Time spent managing pt's care (in minutes): 55
== END 2018-02-20 14:02 | disposition home or self-care (01) | DRG 190 ==
LOC: ER 06:16 → ERHOLD 10:48 → 2ND 12:16
PROVIDERS: ADMIT Family Medicine; ATTEND Family Medicine
PROC: 5A09457 Assistance with Respiratory Ventilation, 24-96 Consecutive Hours, Continuous Positive Airway Pressure (ICD-10-PCS; principal; 2018-02-16)
DX: J44.0 Chronic obstructive pulmonary disease with (acute) lower respiratory infection (principal); J18.9 Pneumonia, unspecified organism; I50.23 Acute on chronic systolic (congestive) heart failure; J98.11 Atelectasis; J44.1 Chronic obstructive pulmonary disease with (acute) exacerbation; Z72.0 Tobacco use; K04.7 Periapical abscess without sinus; I11.0 Hypertensive heart disease with heart failure; R09.02 Hypoxemia; K21.9 Gastro-esophageal reflux disease without esophagitis; R49.0 Dysphonia; J38.7 Other diseases of larynx; G47.33 Obstructive sleep apnea (adult) (pediatric); E87.6 Hypokalemia
CPT/HCPCS: 36415; 70486; 71045; 71046; 71275; 76377; 80048; 80076; 80307; 81003; 81015; 82550; 82553; 82805; 83605; 83735; 83880; 84132; 84145; 84439; 84443; 84484; 85025; 85027; 85610; 85652; 85730; 86038; 86140; 87040; 87070; 87081; 87205; 87804; 93005; 93306; 93970; 94640; 94660; 97163; 99285; J1650; J1720; J1940; J2405; J2543; J3010; J7030; J7512; J7605; Q9967

== ENCOUNTER 2018-12-11 13:41 | Emergency (ER) | payer SELFPAY ==
--- NOTE | 2018-12-11 15:33 | ER ---
Nurse's Notes [facility] Name: Kimberlee Aguilar Age: 38 yrs Sex: Male : 1980 Arrival Date: 12/11/2018 Time: 13:44 Bed 14 Private MD: Diagnosis: Dental caries;Periapical abscess without sinus;Cough Presentation: 12/11 13:53 Presenting complaint: Patient states: really bad smokers cough, and a toothache with sg swelling on the Left upper jaw as well has having pain the left side of neck and left ear for several days now. Transition of care: patient was not received from another setting of care. Onset of symptoms was December 11, 2018. Risk Assessment: Do you want to hurt yourself or someone else? Patient reports no desire to harm self or others. Initial Sepsis Screen: Does the patient meet any 2 criteria? No. Patient's initial sepsis screen is negative. Does the patient have a suspected source of infection? No. Patient's initial sepsis screen is negative. Care prior to arrival: None. 13:53 Method Of Arrival: Ambulatory sg 13:53 Acuity: CELINE 4 sg Historical: - Allergies: 13:45 No Known Allergies; sg - PMHx: 13:45 High Blood Pressure; sg - PSHx: 13:45 None; sg - Immunization history:: Adult Immunizations up to date. - Social history:: Smoking status: Patient/guardian denies using tobacco. - Ebola Screening: : Patient negative for fever greater than or equal to 101.5 degrees Fahrenheit, and additional compatible Ebola Virus Disease symptoms Patient denies exposure to infectious person Patient denies travel to an Ebola-affected area in the 21 days before illness onset No symptoms or risks identified at this time. Screenin:30 Abuse screen: Denies threats or abuse. Nutritional screening: No deficits noted. em Tuberculosis screening: No symptoms or risk factors identified. Fall Risk None identified. Assessment: 15:30 General: Appears in no apparent distress. comfortable, Behavior is calm, cooperative, em Reports chills for fever for. Pain: Complains of pain in upper left second molar. Neuro: Level of Consciousness is awake, alert, obeys commands, Oriented to person, place, time, situation, Reports headache. Cardiovascular: Capillary refill < 3 seconds Patient's skin is warm and dry. Respiratory: Airway is patent Respiratory effort is even, unlabored, Respiratory pattern is regular, symmetrical. Respiratory: Reports cough that is non-productive, Breath sounds are clear bilaterally. GI: Patient currently denies nausea, vomiting. EENT: Nares are clear Oral mucosa is moist. Throat is clear is pink Reports nasal congestion. Derm: Skin is intact, is healthy with good turgor, Skin is pink, warm \T\ dry. Musculoskeletal: Capillary refill < 3 seconds, Range of motion: intact in all extremities. 15:45 Reassessment: Patient appears in no apparent distress at this time. I agree with above iw assessment by Viet Olivares LVN. Vital Signs: 13:54 Pulse 87; Resp 17; Temp 98.6; Pulse Ox 100% on R/A; Weight 106.59 kg; Height 5 ft. 11 sg in. (180.34 cm); Pain 10/10; 13:58 BP 176 / 98; sg 13:54 Body Mass Index 32.78 (106.59 kg, 180.34 cm) sg ED Course: 13:44 Patient arrived in ED. rg4 13:45 Arm band placed on. sg 13:54 Triage completed. sg 15:20 Humphrey Patel, TECHNICAL INFORMATION SPECIALIST is PHCP. pm1 15:20 Raymon Valladares MD is Attending Physician. pm1 15:29 Viet Olivares LVN is Primary Nurse. em 15:30 Patient has correct armband on for positive identification. Bed in low position. Call em light in reach. 16:06 No provider procedures requiring assistance completed. Patient did not have IV access em during this emergency room visit. Administered Medications: 15:40 Drug: SOLU-Medrol 125 mg Route: IM; Site: left gluteus; em 16:07 Follow up: Response: No adverse reaction em 15:41 Drug: [place] 10 mg-325 mg 1 tabs Route: PO; em 16:07 Follow up: Response: No adverse reaction em Outcome: 15:32 Discharge ordered by MD. pm1 16:06 Discharged to home ambulatory. em 16:06 Condition: good 16:06 Discharge instructions given to patient, Instructed on discharge instructions, follow up and referral plans. no drinking with medication, no driving heavy equipment, medication usage, Demonstrated understanding of instructions, follow-up care, medications, Prescriptions given X 3. 16:07 Patient left the ED. em Signatures: Joel Burr RN RN sg Viet Olivares, VIDEO TAPE EDITOR VIDEO TAPE EDITOR em Lilian Courtney RN RN iw Humphrey Patel, TECHNICAL INFORMATION SPECIALIST TECHNICAL INFORMATION SPECIALIST pm1 Carol Garland rg4 Corrections: (The following items were deleted from the chart) 13:59 13:58 BP 176 / 118; sg sg 14:19 13:53 Presenting complaint: Patient states: really bad smokers cough, and a toothache sg for several days now sg
--- NOTE | 2018-12-11 15:34 | EDPHYS ---
Physician Documentation [facility] Name: Kimberlee Aguilar Age: 38 yrs Sex: Male : 1980 Arrival Date: 12/11/2018 Time: 13:44 Bed 14 Private MD: ED Physician Raymon Valladares HPI: 12/11 15:30 This 38 yrs old Black Male presents to ER via Ambulatory with complaints of Toothache, pm1 Cough. 15:30 The patient presents with Dental pain. The problem is located in the upper left second pm1 bicuspid, upper left first molar and upper left second molar. Onset: The symptoms/episode began/occurred yesterday. Duration: The symptoms are continuous, and are steadily getting worse. Modifying factors: The symptoms are alleviated by nothing, the symptoms are aggravated by palpation and eating. Associated signs and symptoms: Pertinent positives: pain, swelling, facial, Pertinent negatives: fever, inability to eat. Severity of symptoms: in the emergency department the symptoms are actually worse. The patient has experienced similar episodes in the past, a few times. The patient has not recently seen a physician. Patient also presenting with a cough. + smoker. No fevers. Sensation of sinus pressure with congestion and post nasal drainage resulting in productive cough. No chest pain or shortness of breath. Historical: - Allergies: 13:45 No Known Allergies; sg - PMHx: 13:45 High Blood Pressure; sg - PSHx: 13:45 None; sg - Immunization history:: Adult Immunizations up to date. - Social history:: Smoking status: Patient/guardian denies using tobacco. - Ebola Screening: : Patient negative for fever greater than or equal to 101.5 degrees Fahrenheit, and additional compatible Ebola Virus Disease symptoms Patient denies exposure to infectious person Patient denies travel to an Ebola-affected area in the 21 days before illness onset No symptoms or risks identified at this time. ROS: 15:30 Constitutional: Negative for fever, chills, and weight loss, Eyes: Negative for injury, pm1 pain, redness, and discharge. 15:30 Neck: Negative for injury, pain, and swelling, Cardiovascular: Negative for chest pain, palpitations, and edema. 15:30 Abdomen/GI: Negative for abdominal pain, nausea, vomiting, diarrhea, and constipation, Back: Negative for injury and pain, : Negative for injury, bleeding, discharge, and swelling, MS/Extremity: Negative for injury and deformity, Skin: Negative for injury, rash, and discoloration, Neuro: Negative for headache, weakness, numbness, tingling, and seizure. 15:30 ENT: Positive for dental pain, ear pain, sinus congestion, sinus pain, Negative for sore throat, difficulty swallowing, difficulty handling secretions, hoarseness. 15:30 Respiratory: Positive for cough, with yellow sputum, Negative for shortness of breath, wheezing. Exam: 15:30 Constitutional: This is a well developed, well nourished patient who is awake, alert, pm1 and in no acute distress. Head/Face: Normocephalic, atraumatic. Eyes: Pupils equal round and reactive to light, extra-ocular motions intact. Lids and lashes normal. Conjunctiva and sclera are non-icteric and not injected. Cornea within normal limits. Periorbital areas with no swelling, redness, or edema. 15:30 Neck: Trachea midline, no thyromegaly or masses palpated, and no cervical lymphadenopathy. Supple, full range of motion without nuchal rigidity, or vertebral point tenderness. No Meningismus. Chest/axilla: Normal chest wall appearance and motion. Nontender with no deformity. No lesions are appreciated. Cardiovascular: Regular rate and rhythm with a normal S1 and S2. No gallops, murmurs, or rubs. Normal PMI, no JVD. No pulse deficits. Respiratory: Lungs have equal breath sounds bilaterally, clear to auscultation and percussion. No rales, rhonchi or wheezes noted. No increased work of breathing, no retractions or nasal flaring. Abdomen/GI: Soft, non-tender, with normal bowel sounds. No distension or tympany. No guarding or rebound. No evidence of tenderness throughout. Back: No spinal tenderness. No costovertebral tenderness. Full range of motion. Skin: Warm, dry with normal turgor. Normal color with no rashes, no lesions, and no evidence of cellulitis. MS/ Extremity: Pulses equal, no cyanosis. Neurovascular intact. Full, normal range of motion. 15:30 ENT: External ear(s): are unremarkable, Ear canal(s): are normal, TM's: are normal, Nose: is normal, Mouth: is normal, (-) tongue elevation (-) trismus Posterior pharynx: no acute changes, Dental exam: dental caries, specifically in the upper left second bicuspid (#13), upper left first molar (#14) and upper left second molar (#15), missing teeth, specifically the upper left first bicuspid (#12). 15:30 Neuro: Orientation: is normal, Motor: is normal, moves all fours, Sensation: is normal, no obvious gross deficits. Vital Signs: 13:54 Pulse 87; Resp 17; Temp 98.6; Pulse Ox 100% on R/A; Weight 106.59 kg; Height 5 ft. 11 sg in. (180.34 cm); Pain 10/10; 13:58 BP 176 / 98; sg 13:54 Body Mass Index 32.78 (106.59 kg, 180.34 cm) sg MDM: 15:20 Patient medically screened. pm1 15:30 Data reviewed: vital signs. Data interpreted: Pulse oximetry: on room air is 100 %. pm1 Interpretation: normal. Counseling: I had a detailed discussion with the patient and/or guardian regarding: the historical points, exam findings, and any diagnostic results supporting the discharge/admit diagnosis, the need for outpatient follow up, for definitive care, a dentist, to return to the emergency department if symptoms worsen or persist or if there are any questions or concerns that arise at home, smoking cessation. 15:41 ED course: Abx prescribed for dental abscess. Patient requested steroids cough and pm1 sinus congestion. Administered Medications: 15:40 Drug: SOLU-Medrol 125 mg Route: IM; Site: left gluteus; em 16:07 Follow up: Response: No adverse reaction em 15:41 Drug: Lulu 10 mg-325 mg 1 tabs Route: PO; em 16:07 Follow up: Response: No adverse reaction em Disposition: 17:33 Co-signature as Attending Physician, Raymon Valladares MD. rn Disposition: 12/11/18 15:32 Discharged to Home. Impression: Periapical abscess without sinus, Dental caries, Cough. - Condition is Stable. - Discharge Instructions: Dental Pain, Steps to Quit Smoking, Smoking Hazards, Cough, Adult. - Prescriptions for Augmentin 875- 125 mg Oral Tablet - take 1 tablet by ORAL route every 12 hours for 10 days; 20 tablet. Tylenol- Codeine #3 300-30 mg Oral Tablet - take 2 tablets by ORAL route every 6 hours As needed; 20 tablet. Medrol (Alex) 4 mg Oral Tablets, Dose Pack - take 1 tablet by ORAL route as directed - follow package instructions; 1 packet. - Medication Reconciliation Form, Thank You Letter, Antibiotic Education, Prescription Opioid Use form. - Follow up: Emergency Department; When: As needed; Reason: Worsening of condition. Follow up: Private Physician; When: 2 - 3 days; Reason: Recheck today's complaints, Continuance of care, Re-evaluation by your physician. - Problem is new. - Symptoms have improved. Signatures: Joel Burr, RN RN sg Viet Olivares, EMPLOYEE RELATIONS ASSISTANT EMPLOYEE RELATIONS ASSISTANT em Raymon Valladares MD MD rn Marinas, Patrick, JULIO STRATEGIC DEBRIEFING SPECIALIST pm1 Corrections: (The following items were deleted from the chart) 15:46 15:32 12/11/2018 15:32 Discharged to Home. Impression: Periapical abscess without pm1 sinusDental caries. Condition is Stable. Forms are Medication Reconciliation Form, Thank You Letter, Antibiotic Education, Prescription Opioid Use. Follow up: Emergency Department; When: As needed; Reason: Worsening of condition. Follow up: Private Physician; When: 2 - 3 days; Reason: Recheck today's complaints, Continuance of care, Re-evaluation by your physician. Problem is new. Symptoms have improved. pm1 16:07 15:46 12/11/2018 15:32 Discharged to Home. Impression: Periapical abscess without em sinusDental caries; Cough. Condition is Stable. Discharge Instructions: Dental Pain, Steps to Quit Smoking, Smoking Hazards. Prescriptions for Augmentin 875-125 mg Oral Tablet - take 1 tablet by ORAL route every 12 hours for 10 days; 20 tablet, Tylenol-Codeine #3 300-30 mg Oral Tablet - take 2 tablets by ORAL route every 6 hours As needed; 20 tablet, Medrol (Alex) 4 mg Oral Tablets, Dose Pack - take 1 tablet by ORAL route as directed - follow package instructions; 1 packet. and Forms are Medication Reconciliation Form, Thank You Letter, Antibiotic Education, Prescription Opioid Use. Follow up: Emergency Department; When: As needed; Reason: Worsening of condition. Follow up: Private Physician; When: 2 - 3 days; Reason: Recheck today's complaints, Continuance of care, Re-evaluation by your physician. Problem is new. Symptoms have improved. pm1
[2018-12-11] MEDS ORDERED: HYDROCODONE/APAP 10/325 TAB ONE (15:46)
[2018-12-11] MEDS ORDERED: METHYLPREDNISOLONE 125 MG INJ ONE (15:46)
[2018-12-11] MEDS ORDERED: AMOX/K CLAV 875 MG TAB ONE (16:16)
== END 2018-12-11 16:07 | disposition home or self-care (01) ==
LOC: ER 13:41
DX: K04.7 Periapical abscess without sinus (principal); R05 Cough; Z72.0 Tobacco use
CPT/HCPCS: 96372; 99283; J2930

== ENCOUNTER 2021-02-08 15:37 | Emergency (ER) | payer SELFPAY ==
--- OUTSIDE RECORDS SUMMARY | 2021-02-08 15:40 | XMS REPORT | Continuity of Care Document ---
:1980 Author Organization [facility] t Address [address] [place] [address] Care Team Providers Name Role Phone Pcp MD Primary Care Physician Unavailable Problems This patient has no known problems. Allergies, Adverse Reactions, Alerts This patient has no known allergies or adverse reactions. Social History Social Habit Start Date Stop Date Quantity Comments Source History [facility] - [facility] History [facility] - Alcohol Binge Medical [facility] ter Sex Assigned At [facility] History of tobacco Cigarette Smoker [facility] use [facility] Cigarettes smoked 2019-03-27 2019-03-[address] [facility] [address] [facility] - current (pack per 00:00:00 00:00:00 [facility] day) - Reported Tobacco use and 2019-03-27 2019-03-27 Never used [facility] - exposure 00:00:00 00:00:00 [facility] Alcohol intake 2019-03-27 2019[facility]03-27 [facility] non-drinker of Medical Ce nter alcohol (finding) History [facility] 2019-03-27 2019-03-[address] [facility] - Alcohol Frequency 00:00:00 00:00:00 [facility] Smoking Status Start Date Stop Date Source Current every day smoker 2019-03-27 00:00:00 [facility] Medications Ordered Filled Start Stop Current Ordering Indication Dosage Frequency Signature Comments Components Source Medication Medication Date Date Medication? Clinician (SIG) Name Name amlodipine 2019- Yes 1{tbl} QD Take [address] [facility] besylate 7-13 tablet by Steve - (AMLODIPINE 21:55: mouth Medic al ORAL) 35 daily. Center Procedures This patient has no known procedures. Plan of Care Planned Activity Planned Date Details Comments Source Future Scheduled 2020-05-16 INFLUENZA VACCINE (#1) [facility] - Test 00:00:00 [code = INFLUENZA Medical Ce nter VACCINE (#1)] Future Scheduled [address] [facility] - Test 00:00:00 (procedure) [code = [facility] [id number]] Future Scheduled [address] [facility] - Test 00:00:00 0-64 YRS (1 of 1 - Medical C enter PPSV23) [code = PNEUMOCOCCAL VACCINE 0-64 YRS (1 of 1 - PPSV23)] Results Test Description Test Time Test Comments Results Result Sourc e Comments RAD, CHEST, 2 2019-02-13 Reason for FINAL REPORT PATIENT VIEWS 00:43:00 exam:->COUGH ID: [id number] EXAMINATION: 2 view chest CLINICAL INDICATION: Cough IMPRESSION: No evidence of focal lung consolidation, pulmonary edema or pleural effusion. The heart is mildly prominent. Mediastinal contours are sharp and smooth. No evidence of an acute osseous abnormality or pneumothorax. Signed: Jose Correia MDReport Verified Date/Time: 02/13/2019 00:43:12 Reading Location: [address] Reading Room
--- NOTE | 2021-02-08 16:13 | EDPHYS ---
Physician Documentation [facility] Name: Kimberlee Aguilar Age: 40 yrs Sex: Male : 1980 Arrival Date: 02/08/2021 Time: 15:41 Bed 2 Private MD: ED Physician Cyrus Guardado HPI: 02/08 18:49 This 40 yrs old Black Male presents to ER via Ambulatory with complaints of Abscess, kdr High Blood Pressure. 18:49 The patient presents with an abscess of the upper left first molar, upper left second kdr molar and upper left third molar, the patient presents with a swollen area of the left ear and left jaw. Description: raised, swollen. Onset: The symptoms/episode began/occurred at an unknown time. Months. Possible cause(s): Dental infection. Associated signs and symptoms: Pertinent positives: swelling. Modifying factors: the symptoms are alleviated by. Severity of symptoms: At their worst the symptoms were moderate, in the emergency department the symptoms. The patient has not experienced similar symptoms in the past. The patient has not recently seen a physician. The patient states that he has had a dental infection for months on the upper left maxillary region. Historical: - Allergies: 15:54 No Known Allergies; ca1 - Home Meds: 15:54 amlodipine 5 mg tab 1 tab once daily [Active]; ca1 - PMHx: 15:54 High Blood Pressure; ca1 - PSHx: 15:54 None; ca1 - Immunization history:: Client reports having NOT received the Covid vaccine. Flu vaccine is not up to date. - Social history:: Smoking status: Patient reports the use of cigarette tobacco products, smokes one-half pack cigarettes per day. ROS: 18:49 Constitutional: Negative for fever, chills, and weight loss, Eyes: Negative for injury, kdr pain, redness, and discharge, Neck: Negative for injury, pain, and swelling, Cardiovascular: Negative for chest pain, palpitations, and edema, Respiratory: Negative for shortness of breath, cough, wheezing, and pleuritic chest pain, Abdomen/GI: Negative for abdominal pain, nausea, vomiting, diarrhea, and constipation, Back: Negative for injury and pain, : Negative for injury, bleeding, discharge, and swelling, MS/Extremity: Negative for injury and deformity, Skin: Negative for injury, rash, and discoloration, Neuro: Negative for headache, weakness, numbness, tingling, and seizure activity. Psych: Negative for depression, anxiety, suicide ideation, homicidal ideation, and hallucinations, Allergy/Immunology: Negative for hives, rash, and allergies, Endocrine: Negative for neck swelling, polydipsia, polyuria, polyphagia, and marked weight changes. Exam: 18:49 Constitutional: This is a well developed, well nourished patient who is awake, alert, kdr and in no acute distress. Head/Face: Normocephalic, atraumatic. Eyes: Pupils equal round and reactive to light, extra-ocular motions intact. Lids and lashes normal. Conjunctiva and sclera are non-icteric and not injected. Cornea within normal limits. Periorbital areas with no swelling, redness, or edema. 18:49 ENT: Mouth: Lips: normal, Oral mucosa: normal, Gums: swollen, on the left buccal mucosa, Tongue: is normal, abscess, that is minimal, of the left buccal mucosa. Vital Signs: 15:50 BP 184 / 125 RA; Pulse 90; Resp 16 S; Temp 97.8(TE); Pulse Ox 99% on R/A; Weight 111.13 ca1 kg (R); Height 6 ft. 0 in. (182.88 cm) (R); Pain 7/10; 15:54 BP 177 / 138 LA; ca1 15:50 Body Mass Index 33.23 (111.13 kg, 182.88 cm) ca1 MDM: 16:13 Patient medically screened. kdr 18:49 Data reviewed: vital signs, nurses notes. Counseling: I had a detailed discussion with kdr the patient and/or guardian regarding: the historical points, exam findings, and any diagnostic results supporting the discharge/admit diagnosis. Administered Medications: No medications were administered Disposition: 02/08/21 16:13 Discharged to Home. Impression: Dental Abscess. - Condition is Stable. - Discharge Instructions: Dental Pain, [id number], Dental Abscess, Ewpy-wd-Eqlv, Dental Caries, Zjhs-cv-Smce, Preventive Dental Care, Adult. - Prescriptions for Amoxicillin 500 mg Oral Capsule - take 1 capsule by ORAL route every 8 hours for 10 days; 30 tablet. Ibuprofen 800 mg Oral Tablet - take 1 tablet by ORAL route every 8 hours As needed take with food; 30 tablet. - Medication Reconciliation Form, Thank You Letter, Antibiotic Education form. - Follow up: Private Physician; When: 2 - 3 days; Reason: If symptoms return, Further diagnostic work-up, Recheck today's complaints, Continuance of care, Re-evaluation by your physician. - Problem is new. - Symptoms have improved. Signatures: Cyrus Guardado MD MD kdr Merari Wells RN RN Acob, LUCAS Mixon RN ca1 Corrections: (The following items were deleted from the chart) 16:32 16:13 02/08/2021 16:13 Discharged to Home. Impression: Dental Abscess. Condition is hb Stable. Forms are Medication Reconciliation Form, Thank You Letter, Antibiotic Education, Prescription Opioid Use. Follow up: Private Physician; When: 2 - 3 days; Reason: If symptoms return, Further diagnostic work-up, Recheck today's complaints, Continuance of care, Re-evaluation by your physician. Problem is new. Symptoms have improved. kdr
--- NOTE | 2021-02-08 16:13 | ER ---
Nurse's Notes [facility] Name: Kimberlee Aguilar Age: 40 yrs Sex: Male : 1980 Arrival Date: 02/08/2021 Time: 15:41 Bed 2 Private MD: Diagnosis: Dental Abscess Presentation: 02/08 15:50 Chief complaint: Patient states: tooth abscess x month, and I feel like my BP is high ca1 cause am having a headache. Coronavirus screen: Client denies travel out of the [place] in the last 14 days. headache, Client presents with at least one sign or symptom that may indicate coronavirus-19. Standard/surgical mask placed on the client. Provider contacted for isolation considerations. Ebola Screen: Patient negative for fever greater than or equal to 101.5 degrees Fahrenheit, and additional compatible Ebola Virus Disease symptoms Patient denies exposure to infectious person. Patient denies travel to an Ebola-affected area in the 21 days before illness onset. No symptoms or risks identified at this time. Initial Sepsis Screen: Does the patient meet any 2 criteria? No. Patient's initial sepsis screen is negative. Does the patient have a suspected source of infection? No. Patient's initial sepsis screen is negative. Risk Assessment: Do you want to hurt yourself or someone else? Patient reports no desire to harm self or others. Onset of symptoms was February 08, 2021. 15:50 Method Of Arrival: Ambulatory ca1 15:50 Acuity: CELINE 2 ca1 Historical: - Allergies: 15:54 No Known Allergies; ca1 - Home Meds: 15:54 amlodipine 5 mg tab 1 tab once daily [Active]; ca1 - PMHx: 15:54 High Blood Pressure; ca1 - PSHx: 15:54 None; ca1 - Immunization history:: Client reports having NOT received the Covid vaccine. Flu vaccine is not up to date. - Social history:: Smoking status: Patient reports the use of cigarette tobacco products, smokes one-half pack cigarettes per day. Screenin:06 Abuse screen: Denies threats or abuse. Denies injuries from another. Nutritional hb screening: No deficits noted. Tuberculosis screening: No symptoms or risk factors identified. Fall Risk None identified. Assessment: 16:05 General: Appears in no apparent distress. Behavior is calm, cooperative. Pain: Pain hb currently is 7 out of 10 on a pain scale. Neuro: Level of Consciousness is awake, alert, obeys commands, Oriented to person, place, time, situation. Cardiovascular: Patient's skin is warm and dry. Respiratory: Respiratory effort is even, unlabored, Respiratory pattern is regular, symmetrical. GI: No signs and/or symptoms were reported involving the gastrointestinal system. : No signs and/or symptoms were reported regarding the genitourinary system. EENT: Reports pain since left upper molar pain. Derm: Skin is. Musculoskeletal: No signs and/or symptoms reported regarding the musculoskeletal system. Vital Signs: 15:50 BP 184 / 125 RA; Pulse 90; Resp 16 S; Temp 97.8(TE); Pulse Ox 99% on R/A; Weight 111.13 ca1 kg (R); Height 6 ft. 0 in. (182.88 cm) (R); Pain 7/10; 15:54 BP 177 / 138 LA; ca1 15:50 Body Mass Index 33.23 (111.13 kg, 182.88 cm) ca1 ED Course: 15:41 Patient arrived in ED. ds1 15:49 Cyrus Guardado MD is Attending Physician. kdr 15:53 Triage completed. ca1 15:54 Arm band placed on right wrist. ca1 16:05 No provider procedures requiring assistance completed. hb 16:06 Merari Wells, RN is Primary Nurse. hb 16:06 Patient has correct armband on for positive identification. Bed in low position. Call hb light in reach. 16:28 Patient did not have IV access during this emergency room visit. hb Administered Medications: No medications were administered Outcome: 16:13 Discharge ordered by . kdr 16:28 Discharged to home ambulatory. hb 16:28 Condition: stable 16:28 Discharge instructions given to patient, Instructed on discharge instructions, follow up and referral plans. medication usage, Demonstrated understanding of instructions, follow-up care, medications, Prescriptions given X 2. 16:32 Patient left the ED. hb Signatures: Cyrus Guardado MD MD [facility] Kennedy ds1 Merari Wells, RN LUCAS hb Apurva Merchant RN RN ca1 Corrections: (The following items were deleted from the chart) 15:54 15:50 Acuity: CELINE 4 ca1 ca1
[2021-02-08 16:37] VITALS: TEMP 97.8; O2SAT 99
[2021-02-08 16:39] VITALS: BP 177/138
== END 2021-02-08 16:32 | disposition home or self-care (01) ==
LOC: ER 15:37
DX: K04.7 Periapical abscess without sinus (principal); F17.210 Nicotine dependence, cigarettes, uncomplicated
CPT/HCPCS: 99282

== ENCOUNTER 2023-03-15 16:49 | Emergency (ER) | payer OTHER, SELFPAY ==
--- OUTSIDE RECORDS SUMMARY | 2023-03-15 16:52 | XMS REPORT | Continuity of Care Document ---
:1980 Author Organization [facility] t Address [address] [place] [address] Care Team Providers Name Role Phone No, Pcp [facility] Primary Care Physician Unavailable Problems This patient has no known problems. Allergies, Adverse Reactions, Alerts This patient has no known allergies or adverse reactions. Social History Social Habit Start Date Stop Date Quantity Comments Source History SDOH [facility] Alcohol Binge Medical [facility] History of tobacco Smokes tobacco [facility] use daily [facility] History SDOH [facility] Alcohol Std Drinks [facility] History [facility] 2019-03-28 2019-03-[address] [facility] Alcohol Frequency 00:00:00 00:00:00 [facility] Cigarettes smoked 2019-03-27 2019-03-[address] [facility] current (pack per 00:00:00 00:00:00 [facility] Center day) - Reported Tobacco use and 2019-03-27 2019-03-27 Smokeless tobacco [facility] exposure 00:00:00 00:00:00 non-user [facility] Center Alcohol intake 2019-03-27 2019-03-[address] 00:[facility] 00[facility]00[facility]00 non-drinker of Medical Ce nter alcohol (finding) Sex Assigned At [address] 00:[facility]00 [facility]00:00 [facility] Smoking Status Start Date Stop Date Source Smokes tobacco daily 2019-03-27 00:00:00 [facility] Medications Ordered Filled Start Stop Current Ordering Indication Dosage Frequency Signature Comments Components Source Medication Medication Date Date Medication? Clinician (SIG) Name Name amlodipine Yes 1{tbl} QD Take [address] [facility] besylate 7-13 tablet by Steve (AMLODIPINE 21:55: mouth Medic al ORAL) 35 daily. Center Procedures This patient has no known procedures. Results Test Description Test Time Test Comments Results Result [facility] Comments RAD, CHEST, 2 2019-02-13 Reason for FINAL REPORT PATIENT VIEWS 00:43:00 exam:->COUGH ID: [id number] EXAMINATION: 2 view chest CLINICAL INDICATION: Cough IMPRESSION: No evidence of focal lung consolidation, pulmonary edema or pleural effusion. The heart is mildly prominent. Mediastinal contours are sharp and smooth. No evidence of an acute osseous abnormality or pneumothorax. Signed: Jose Correia MDReport Verified Date/Time: 02/13/2019 00:43:12 Reading Location: [address] Reading Room
--- NOTE | 2023-03-15 17:29 | RAD REPORT ---
[facility]15[facility]23 5:20 pm CLINICAL HISTORY: COUGH COMPARISON: Chest Pa And Lat (2 Views) dated 02/20/2018; Chest Pa And Lat (2 Views) dated 02/17/2018; Ch est Single View dated 02/16/2018 TECHNIQUE: Portable AP view of the chest. FINDINGS: The lungs are clear. No pneumothorax or effusion. The cardiomediastinal contours are unre markable. IMPRESSION: No acute cardiopulmonary process.
--- NOTE | 2023-03-15 17:32 | EDPHYS ---
Physician Documentation [facility] Name: Kimberlee Aguilar Age: 42 yrs Sex: Male : 1980 Arrival Date: 03/15/2023 Time: 16:49 Bed 11 Private MD: ED Physician Raymon Valladares HPI: 03/15 17:10 This 42 yrs old Black Male presents to ER via Ambulatory with complaints of cough. rn 17:10 The patient or guardian reports cough, described as moderate, with productive sputum. rn 17:11 Onset: The symptoms/episode began/occurred 3 week(s) ago. Severity of symptoms: At rn their worst the symptoms were moderate, in the emergency department the symptoms are unchanged. Modifying factors: The symptoms are alleviated by nothing, the symptoms are aggravated by nothing. Associated signs and symptoms: Pertinent negatives: chest pain, fever, vomiting. The patient has experienced similar episodes in the past. The patient has not recently seen a physician. Pt reports 20 days of cough, productive of sputum, no fever, + smoker, no chest pain, no hemoptysis, no sob. . Historical: - Allergies: 17:05 No Known Allergies; ss - Home Meds: 17:05 amlodipine 10 mg oral tablet 1 tab daily [Active]; lisinopril 20 mg Oral tablet daily ss [Active]; - PMHx: 17:05 High Blood Pressure; ss - PSHx: 17:05 None; ss - Immunization history:: Client reports having NOT received the Covid vaccine. - Social history:: Smoking status: Patient/guardian denies using tobacco, Stopped _ months ago .25. - Family history:: not pertinent. - Hospitalizations: : No recent hospitalization is reported. ROS: 17:11 Constitutional: Negative for fever, chills, and weight loss, Cardiovascular: Negative rn for chest pain, palpitations, and edema, Respiratory: Negative for shortness of breath, wheezing Abdomen/GI: Negative for abdominal pain, nausea, vomiting, diarrhea, and constipation, MS/Extremity: Negative for injury and deformity, Skin: Negative for injury, rash, and discoloration, Neuro: Negative for headache, weakness, numbness, tingling, and seizure. Exam: 17:11 Constitutional: This is a well developed, well nourished patient who is awake, alert, rn and in no acute distress. Seems anxious Head/Face: Normocephalic, atraumatic. ENT: No stridor Cardiovascular: Tachycardic, regular. No pulse deficits. Respiratory: No increased work of breathing, no retractions or nasal flaring. Abdomen/GI: Soft, non-tender Skin: Warm, dry MS/ Extremity: Pulses equal, no cyanosis. Neuro: Awake and alert, GCS 15 Vital Signs: 17:03 BP 179 / 113; Pulse 107; Resp 18; Temp 98(O); Pulse Ox 98% on R/A; Pain 0/10; ss 17:39 Pulse 101; ss 17:03 Pain Scale: Adult ss MDM: 16:53 Patient medically screened. rn 17:31 Differential Diagnosis: Bronchitis Upper Respiratory Infection Viral Syndrome rn Pneumonia. Data reviewed: vital signs, nurses notes, radiologic studies, plain films, and as a result, I will discharge patient. Counseling: I had a detailed discussion with the patient and/or guardian regarding: the historical points, exam findings, and any diagnostic results supporting the discharge/admit diagnosis, radiology results, the need for outpatient follow up, to return to the emergency department if symptoms worsen or persist or if there are any questions or concerns that arise at home. Counseling: I had a detailed discussion with the patient and/or guardian regarding: the presence of at least one elevated blood pressure reading (>120/80) during this emergency department visit, smoking cessation. Special discussion: I discussed with the patient/guardian in detail that at this point there is no indication for admission to the hospital. It is understood, however, that if the symptoms persist or worsen the patient needs to return immediately for re-evaluation. Based on the history and exam findings, there is no indication for further emergent testing or inpatient evaluation. I discussed with the patient/guardian the need to see the primary care provider for further evaluation of the symptoms. I discussed with the patient/guardian the need to see the brownell operator for further evaluation of the symptoms. 03/15 17:07 Order name: XRAY Chest Pa And Lat (2 Views); Complete Time: 17:31 rn Administered Medications: No medications were administered Disposition Summary: 03/15/23 17:32 Discharge Ordered Location: Home rn Problem: new rn Symptoms: have improved rn Condition: Stable rn Diagnosis - Cough rn Followup: rn - With: Private Physician - When: As needed - Reason: Recheck today's complaints, Re-evaluation by your physician Discharge Instructions: - Discharge Summary Sheet rn Forms: - Medication Reconciliation Form rn - Thank You Letter rn - Antibiotic internal grinder tender - Prescription Opioid Use rn - [email or web address] rn Prescriptions: - albuterol sulfate 90 mcg/actuation Inhalation HFA Aerosol Inhaler - inhale 2 puff by INHALATION route every 4 to 6 hours As needed as needed for rn bronchospasm; administer via ventilator; 1 unit; Refills: 0, Product Selection Permitted - Prednisone 20 mg Oral Tablet - take 3 tablets by ORAL route once daily for 5 days; 15 tablet; Refills: 0, rn Product Selection Permitted - Zithromax Z-Alex 250 mg Oral Tablet - take 1 tablet by ORAL route as directed for 5 days Day 1 - take two (2) tablets rn one time. Day 2, 3, 4 , 5 take one (1) tablet once daily.; 6 tablet; Refills: 0, Product Selection Permitted Signatures: Dispatcher [employer] EDRaymon Brown MD MD rn Blanchard, Shelby, RN RN ss Corrections: (The following items were deleted from the chart) 17:08 17:05 Allergies: Morphine; ss ss
--- NOTE | 2023-03-15 17:32 | ER ---
Nurse's Notes [facility] Name: Kimberlee Aguilar Age: 42 yrs Sex: Male : 1980 Arrival Date: 03/15/2023 Time: 16:49 Bed 11 Private MD: Diagnosis: Cough Presentation: 03/15 17:03 Chief complaint: Patient states: cough that has been ongoing x 20 days. Pt reports ss clear phlegm. Coronavirus screen: Client denies travel out of the [place] in the last 14 days. Ebola Screen: Patient denies exposure to infectious person. Patient denies travel to an Ebola-affected area in the 21 days before illness onset. Initial Sepsis Screen: Does the patient meet any 2 criteria? No. Patient's initial sepsis screen is negative. Does the patient have a suspected source of infection? No. Patient's initial sepsis screen is negative. Risk Assessment: Do you want to hurt yourself or someone else? Patient reports no desire to harm self or others. Onset of symptoms is unknown. 17:03 Method Of Arrival: Ambulatory ss 17:03 Acuity: CELINE 3 ss Historical: - Allergies: 17:05 No Known Allergies; ss - Home Meds: 17:05 amlodipine 10 mg oral tablet 1 tab daily [Active]; lisinopril 20 mg Oral tablet daily ss [Active]; - PMHx: 17:05 High Blood Pressure; ss - PSHx: 17:05 None; ss - Immunization history:: Client reports having NOT received the Covid vaccine. - Social history:: Smoking status: Patient/guardian denies using tobacco, Stopped _ months ago .25. - Family history:: not pertinent. - Hospitalizations: : No recent hospitalization is reported. Screenin:39 [facility] ED Fall Risk Assessment (Adult) History of falling in the last 3 months, ss including since admission No falls in past 3 months (0 pts). Abuse screen: Denies threats or abuse. Denies injuries from another. Nutritional screening: No deficits noted. Tuberculosis screening: Never had TB. Assessment: 17:39 General: Appears in no apparent distress. comfortable. Neuro: Level of Consciousness is ss awake, alert, obeys commands, Oriented to person, place, time, situation. Cardiovascular: Capillary refill < 3 seconds is brisk in bilateral fingers. Respiratory: Airway is patent Respiratory effort is even, unlabored, Respiratory pattern is regular, symmetrical. Respiratory: Reports cough that is. Derm: Skin is intact, is healthy with good turgor, Skin is pink, warm \T\ dry. normal. Musculoskeletal: Circulation, motion, and sensation intact. Range of motion: intact in all extremities. Vital Signs: 17:03 BP 179 / 113; Pulse 107; Resp 18; Temp 98(O); Pulse Ox 98% on R/A; Pain 0/10; ss 17:39 Pulse 101; ss 17:03 Pain Scale: Adult ss ED Course: 16:51 Patient arrived in ED. ts1 16:53 Raymon Valladares MD is Attending Physician. rn 17:05 Triage completed. ss 17:05 Arm band placed on left wrist. ss 17:22 XRAY Chest Pa And Lat (2 Views) In Process Unspecified. EDMS 17:39 La Sanchez, LUCAS is Primary Nurse. ss 17:39 Patient has correct armband on for positive identification. ss 17:39 No provider procedures requiring assistance completed. Patient did not have IV access ss during this emergency room visit. Administered Medications: No medications were administered Medication: 17:39 VIS not applicable for this client. ss Outcome: 17:32 Discharge ordered by . rn 17:39 Discharged to home ambulatory. ss 17:39 Condition: good 17:39 Discharge instructions given to patient, Instructed on discharge instructions, follow up and referral plans. medication usage, Demonstrated understanding of instructions, follow-up care, medications, Prescriptions given X 3. 17:41 Patient left the ED. ss Signatures: Dispatcher [employer] EDWI Raymon Valladares MD MD rn Blanchard, Shelby, RN RN ss Simpson, Tanya, PAS PAS ts1 Corrections: (The following items were deleted from the chart) 17:08 17:05 Allergies: Morphine; ss ss
[2023-03-15 17:52] VITALS: BP 179/113; TEMP 98; O2SAT 98
== END 2023-03-15 17:41 | disposition home or self-care (01) ==
LOC: ER 16:49
DX: R05.9 Cough, unspecified (principal); I10 Essential (primary) hypertension
CPT/HCPCS: 71046; 99283